=== PATIENT | male | born 1995 | race Caucasian/White ===

== ENCOUNTER 2021-08-20 14:31 | Emergency (ER) | payer SELFPAY ==
--- NOTE | 2021-08-20 16:39 | RAD REPORT ---
EXAM DESCRIPTION: USExtremity Venous Uni Ltd08/20/2021 4:23 pm CLINICAL HISTORY: left leg pain . COMPARISON: None. FINDINGS: Left common femoral, superficial femoral, popliteal and posterior tibial veins are compre ssible and demonstrate augmentation. Doppler demonstrates good flow. 1.3 x 0.7 x 1.1 centimeter nonspecific left inguinal lymph node IMPRESSION: No evidence of deep venous thrombosis involving the left lower extremity.
--- NOTE | 2021-08-20 16:41 | RAD REPORT ---
EXAM DESCRIPTION: Sveta Single View08/20/2021 4:29 pm CLINICAL HISTORY: Leg swelling COMPARISON: none FINDINGS: Mild scoliosis Prominence of the right paratracheal region Lungs appear clear of acute infiltrate. Heart is normal size IMPRESSION: Prominence of the right paratracheal region may represent confluence of normal structur es, lymphadenopathy or an aneurysm. CT chest with IV contrast recommended
[2021-08-20 16:49] LABS: Urine Blood Negative (Negative); Urine Glucose Negative (Negative); Urine Protein Negative (Negative); Urine Specific Gravity 1.015 (1.005-1.030); Urine pH 8.5 (5.0-7.0)
[2021-08-20 17:04] LABS: Absolute Lymphocytes (CBC) 1.5 K/uL (0.7-4.9); Basophils % 0.3 % (0-1.3); Hematocrit 37.9 % (39.6-49.0); MPV 8.6 fL (7.6-11.3); RBC Red Blood Cell Count 4.43 M/uL (4.33-5.43)
[2021-08-20 17:05] LABS: Protime INR 1.12
[2021-08-20] MEDS ORDERED: NA CHLORIDE 0.9% 1,000 ML ONE (17:09)
[2021-08-20 17:10] LABS: ALT/SGPT 55 U/L (12-78); AST/SGOT 25 U/L (15-37); Albumin 3.7 g/dL (3.4-5.0); Alkaline Phosphatase 73 U/L (45-117); BUN Blood Urea Nitrogen 10 mg/dL (7-18); Bicarbonate 27 mmol/L (21-32); Bilirubin Direct 0.1 mg/dL (0-0.2); Bilirubin Total 0.4 mg/dL (0.2-1.0); Glucose Level 100 mg/dL (74-106); Lipase 86 U/L (73-393); Magnesium 1.8 mg/dL (1.8-2.4); NT PRO-BNP 56 pg/mL (<125); Potassium 3.7 mmol/L (3.5-5.1); Protein, Total 7.4 g/dL (6.4-8.2); Sodium Level 140 mmol/L (136-145); Troponin (Emerg Dept Use Only) < 0.02 ng/mL (0.0-0.045)
[2021-08-20 17:38] LABS: Urine Amorphous Sediment 4+ /HPF (NONE SEEN); Urine Bacteria <20 /HPF (NONE SEEN); Urine RBC <5 /HPF (NONE SEEN)
--- NOTE | 2021-08-20 17:49 | RAD REPORT ---
EXAM DESCRIPTION: CT - Angio Aorta For Dissection - 08/20/2021 5:33 pm CLINICAL HISTORY: . Chest and abd pain/abnormal x-ray COMPARISON: None TECHNIQUE: Computed tomography angiography of the chest, abdomen pelvis were obtained. 100 cc Isovue 370 was administered intravenously. Coronal and sagittal reconstruction were performed. MIP 3D reconstruction was performed All CT scans are performed using dose optimization technique as appropriate and may include automated exposure control or mA/KV adjustment according to patient size. FINDINGS: Suboptimal opacification of the aorta. An aortic dissection is not seen. An aortic aneurys m is not displayed. The celiac, SMA and SUPRIYA are patent . A lung consolidation is not present. A pericardial effusion is not seen. A pleural effusion is not no rudy. Moderate anterior and middle mediastinal lymphadenopathy. Lymph nodes measure up to 2.4 centimeters i n short axis. Mild fatty liver The Spleen, pancreas, adrenals and kidneys demonstrate no significant abnormality. No evidence of diverticulitis. Small umbilical hernia Several borderline enlarged periaortic/caval/ left iliac lymph nodes Small gallstone suspected IMPRESSION: Negative for an aortic dissection. Moderate anterior and middle mediastinal lymphadenopathy may indicate lymphoma Several borderline enlarged periaortic/caval/left iliac lymph nodes
[2021-08-20] MEDS ORDERED: CLINDAMYCIN 900MG/D5W 900 MG/50 ML IVPB IV ONE (18:50)
--- NOTE | 2021-08-20 19:33 | EDPHYS ---
Physician Documentation [facility] Name: Arnel Sharpe Age: 26 yrs Sex: Male : 1995 Arrival Date: 08/20/2021 Time: 14:34 Bed DIS3 Private MD: ED Physician Torey Giordano HPI: 08/20 15:35 This 26 yrs old Male presents to ER via Ambulatory with complaints of cp Abdominal Pain, Leg Swelling, Headache. 15:35 The patient presents with abdominal pain left lower flank area. Onset: The cp symptoms/episode began/occurred intermittent for past several weeks. 15:35 Associated signs and symptoms: Pertinent positives: left leg swelling, Pertinent cp negatives: anorexia, chest pain, fever, shortness of breath, testicular pain. Severity of pain: in the emergency department the pain is unchanged despite home interventions. Historical: - Allergies: 15:08 No Known Allergies; vg1 - Home Meds: 15:08 None [Active]; vg1 - PMHx: 15:08 None; vg1 - Immunization history:: Adult Immunizations up to date, Client reports having NOT received the Covid vaccine. - Social history:: Smoking status: Patient/guardian denies using tobacco, the patient reports quitting approximately 4 years ago. ROS: 15:40 MS/extremity: Positive for erythema, pain, swelling, tenderness, of the left lower leg, cp Negative for injury or acute deformity, decreased range of motion, paresthesias. 15:40 Constitutional: Negative for body aches, chills, fever, poor PO intake. cp 15:40 Cardiovascular: Negative for chest pain. 15:40 Respiratory: Negative for cough, shortness of breath, wheezing. 15:40 Abdomen/GI: Positive for abdominal pain, of the left lower flank, Negative for vomiting, diarrhea, constipation, anorexia. 15:40 : Negative for urinary symptoms, testicular pain 15:40 Neuro: Negative for altered mental status, headache, weakness. cp 15:40 All other systems are negative. cp Exam: 15:45 Constitutional: The patient appears in no acute distress, alert, awake, cp non-diaphoretic, non-toxic, well developed, well nourished, obese. 15:45 Head/Face: Normocephalic, atraumatic. cp 15:45 Eyes: Periorbital structures: appear normal, Conjunctiva: normal, no exudate, no injection, Sclera: no appreciated abnormality, Lids and lashes: appear normal, bilaterally. 15:45 ENT: External ear(s): are unremarkable, Nose: is normal, Mouth: Lips: moist, Oral mucosa: moist, Posterior pharynx: Airway: no evidence of obstruction, patent. 15:45 Neck: ROM/movement: is normal, is supple, without pain, no range of motions limitations. 15:45 Chest/axilla: Inspection: normal, Palpation: is normal, no crepitus, no tenderness. 15:45 Cardiovascular: Rate: tachycardic, Rhythm: regular, Edema: ankle edema, that is mild. 15:45 Respiratory: the patient does not display signs of respiratory distress, Respirations: normal, no use of accessory muscles, no retractions, labored breathing, is not present, Breath sounds: are clear throughout, no decreased breath sounds, no stridor, no wheezing. 15:45 Abdomen/GI: Inspection: abdomen appears normal, Bowel sounds: active, all quadrants, Palpation: abdomen is soft and non-tender, in all quadrants, rebound tenderness, is not appreciated. 15:45 Back: pain, is absent, ROM is normal, CVA tenderness, is absent. 15:45 Musculoskeletal/extremity: Extremities: grossly normal except: noted in the left lower leg: erythema, pain, swelling, tenderness, Pulses: noted to be 2+ in the left dorsalis pedis artery, Sensation intact. 15:45 Neuro: Orientation: to person, place \T\ time. Mentation: is normal. 18:03 ECG was reviewed by the Attending Physician. Vital Signs: 15:05 BP 130 / 65; Pulse 122; Resp 18; Temp 99.2; Pulse Ox 100% ; Weight 127.01 kg; Height 5 vg1 ft. 11 in. (180.34 cm); Pain 5/10; 18:00 BP 130 / 60; Pulse 104; Resp 20; Pulse Ox 100% on R/A; kg 19:45 BP 125 / 58; Pulse 102; Resp 20; Pulse Ox 100% on R/A; kg 15:05 Body Mass Index 39.05 (127.01 kg, 180.34 cm) vg1 MDM: 15:24 Patient medically screened. 19:31 Data reviewed: vital signs, nurses notes, lab test result(s), EKG, radiologic studies, cp CT scan, plain films. 19:31 Differential diagnosis: cellulitis, CHF, DVT, pulmonary embolism. Counseling: I had a cp detailed discussion with the patient and/or guardian regarding: the historical points, exam findings, and any diagnostic results supporting the discharge/admit diagnosis, lab results, radiology results, the need for outpatient follow up, for definitive care, oncology, to return to the emergency department if symptoms worsen or persist or if there are any questions or concerns that arise at home. Response to treatment: the patient's symptoms have markedly improved after treatment, and as a result, I will discharge patient. 08/20 15:30 Order name: Basic Metabolic Panel; Complete Time: 17:43 08/20 15:30 Order name: CBC with Diff; Complete Time: 17:43 08/20 17:43 Interpretation: Normal except: WBC 18.10; HGB 12.6; HCT 37.9; ANDREW% 84.9; LYM% 8.0; NEUT cp A 15.4. 08/20 15:30 Order name: LFT's; Complete Time: 17:43 08/20 15:30 Order name: Magnesium; Complete Time: 17:43 08/20 15:30 Order name: NT PRO-BNP; Complete Time: 17:43 08/20 15:30 Order name: PT-INR; Complete Time: 17:43 08/20 15:30 Order name: Troponin (emerg Dept Use Only); Complete Time: 17:43 08/20 15:30 Order name: Urine Microscopic Only; Complete Time: 17:43 08/20 17:43 Interpretation: Normal except: AMORPH 4+. cp 08/20 15:31 Order name: Lipase; Complete Time: 17:43 EDMS 08/20 16:49 Order name: Urine Dipstick-Ancillary; Complete Time: 17:43 EDMS 08/20 17:44 Interpretation: Normal except: UPH 8.5. cp 08/20 17:47 Order name: SARS-COV-2 RT PCR; Complete Time: 17:48 EDMS 08/20 17:49 Order name: Blood Culture Adult (2) cp 08/20 15:30 Order name: XRAY Chest (1 view); Complete Time: 16:43 08/20 15:30 Order name: EKG; Complete Time: 15:31 cp 08/20 15:30 Order name: Cardiac monitoring; Complete Time: 18:28 cp 08/20 15:30 Order name: EKG - Nurse/Tech; Complete Time: 18:28 cp 08/20 15:30 Order name: IV Saline Lock; Complete Time: 16:40 cp 08/20 15:30 Order name: Labs collected and sent; Complete Time: 18:28 cp 08/20 15:30 Order name: US Extremity Venous Unilateral Ltd; Complete Time: 16:43 cp 08/20 16:45 Order name: CT Aorta for Dissection: abdominal pain; Complete Time: 17:56 cp 08/20 17:49 Order name: Procalcitonin 08/20 17:49 Order name: Lactate 08/20 17:50 Order name: Blood Culture EDNE 08/20 17:50 Order name: Procalcitonin; Complete Time: 19:33 EDMS 08/20 17:50 Order name: Lactate; Complete Time: 19:33 EDMS 08/20 15:30 Order name: O2 Per Protocol; Complete Time: 18:28 cp 08/20 15:30 Order name: O2 Sat Monitoring; Complete Time: 18:28 cp 08/20 15:30 Order name: Urine Dipstick-Ancillary (obtain specimen); Complete Time: 18:28 cp EC:03 Rate is 103 beats/min. Rhythm is regular. UT interval is normal. QRS interval is cp normal. QT interval is normal. T waves are Inverted in lead aVR. Interpreted by me. Reviewed by me. Administered Medications: 16:57 Drug: NS 0.9% 1000 ml Route: IV; Rate: 1 bolus; Site: left antecubital; kg 19:30 Follow up: Response: No adverse reaction; IV Status: Completed infusion; IV Intake: kg 1000ml 18:20 Drug: Clindamycin 900 mg Route: IVPB; Infused Over: 30 mins; Site: left antecubital; kg 19:00 Follow up: Response: No adverse reaction; IV Status: Completed infusion; IV Intake: 50mlkg 19:39 Drug: Bactrim (trimethoprim-sulfamethoxazole) (160 mg-800 mg (DS) 2 tabs Route: PO; kg 19:53 Follow up: Response: No adverse reaction kg Disposition: 19:45 Chart complete. cp 08/21 07:56 Co-signature as Attending Physician, Torey Giordano MD I agree with the assessment and rn plan of care. Attestation: The patient's history, exam findings, diagnostics, and a summary of any interventions or procedures was reviewed in detail with Ravi STEVENS. Disposition Summary: 08/20/21 19:32 Discharge Ordered Location: Home cp Problem: new cp Symptoms: have improved cp Condition: Stable cp Diagnosis - Cellulitis of left lower limb cp - Acute lymphadenitis, unspecified - mediastinal(08/20/21 19:33) cp Followup: cp - With: Luiz Gerber MD - When: 1 week - Reason: reevaluation of lymphadenopathy Discharge Instructions: - Discharge Summary Sheet cp - Cellulitis, Adult cp - Lymphadenopathy cp Forms: - Medication Reconciliation Form cp - Thank You Letter cp - Antibiotic Education cp - Prescription Opioid Use cp Prescriptions: - Clindamycin HCl 300 mg Oral Capsule - take 1 capsule by ORAL route every 6 hours for 10 days; 40 capsule; Refills: 0, cp Product Selection Permitted - Ibuprofen 800 mg Oral Tablet - take 1 tablet by ORAL route every 8 hours As needed take with food; 30 tablet; cp Refills: 0, Product Selection Permitted - Bactrim DS 800-160 mg Oral Tablet - take 1 tablet by ORAL route every 12 hours for 10 days; 20 tablet; Refills: 0, cp Product Selection Permitted Signatures: Dispatcher [employer] EDNE Torey Giordano MD MD rn Page, Corey, PA PA cp Carmel Carrizales, RN RN vg1 Tatianna Ames RN RN kg Corrections: (The following items were deleted from the chart) 08/20 16:46 15:31 LIPASE+C.LAB.BRZ ordered. EDNE EDNE 19:33 19:32 Acute lymphadenitis, unspecified cp cp
--- NOTE | 2021-08-20 19:33 | ER ---
Nurse's Notes [facility] Name: Arnel Sharpe Age: 26 yrs Sex: Male : 1995 Arrival Date: 08/20/2021 Time: 14:34 Bed DIS3 Private MD: Diagnosis: Cellulitis of left lower limb;Acute lymphadenitis, unspecified-mediastinal Presentation: 08/20 15:05 Chief complaint: Patient states: ABD pain, Left leg swelling and headache for about vg1 five weeks. Denies NVD or dizziness. Coronavirus screen: Vaccine status: Patient reports being unvaccinated. Ebola Screen: Patient negative for fever greater than or equal to 101.5 degrees Fahrenheit, and additional compatible Ebola Virus Disease symptoms. Initial Sepsis Screen: Does the patient meet any 2 criteria? No. Patient's initial sepsis screen is negative. Does the patient have a suspected source of infection? No. Patient's initial sepsis screen is negative. Risk Assessment: Do you want to hurt yourself or someone else? Patient reports no desire to harm self or others. Onset of symptoms was July 20, 2021. 15:05 Method Of Arrival: Ambulatory vg1 15:05 Acuity: EDER 3 vg1 Triage Assessment: 15:08 General: Appears in no apparent distress. comfortable, Behavior is calm, cooperative. vg1 Pain: Complains of pain in abdomen and left leg. GI: Abdomen is round non-distended. Historical: - Allergies: 15:08 No Known Allergies; vg1 - Home Meds: 15:08 None [Active]; vg1 - PMHx: 15:08 None; vg1 - Immunization history:: Adult Immunizations up to date, Client reports having NOT received the Covid vaccine. - Social history:: Smoking status: Patient/guardian denies using tobacco, the patient reports quitting approximately 4 years ago. Screenin:13 Abuse screen: Denies threats or abuse. Denies injuries from another. Nutritional kg screening: No deficits noted. Tuberculosis screening: No symptoms or risk factors identified. Fall Risk None identified. Assessment: 15:12 General: Appears in no apparent distress. Behavior is calm, cooperative, appropriate kg for age, quiet. Pain: Complains of pain in Head, LLQ abdomen, Left flank, Left leg Pain currently is 4 out of 10 on a pain scale. at worst was 4 out of 10 on a pain scale. level that patient reports is acceptable is 2 out of 10 on a pain scale. Neuro: No deficits noted. Cardiovascular: No deficits noted. Respiratory: No deficits noted. GI: Reports lower abdominal pain, nausea. : No deficits noted. EENT: No deficits noted. Derm: No deficits noted. Musculoskeletal: Reports pain in left leg since Chronic. Pain is 3 out of 10 on a pain scale. 18:22 GI: Bowel sounds present X 4 quads. Abd is soft X 4 quads Abdomen is tender to kg palpation in left lower quadrant. Vital Signs: 15:05 BP 130 / 65; Pulse 122; Resp 18; Temp 99.2; Pulse Ox 100% ; Weight 127.01 kg; Height 5 vg1 ft. 11 in. (180.34 cm); Pain 5/10; 18:00 BP 130 / 60; Pulse 104; Resp 20; Pulse Ox 100% on R/A; kg 19:45 BP 125 / 58; Pulse 102; Resp 20; Pulse Ox 100% on R/A; kg 15:05 Body Mass Index 39.05 (127.01 kg, 180.34 cm) vg1 ED Course: 14:34 Patient arrived in ED. rg4 15:08 Triage completed. vg1 15:08 Arm band placed on. vg1 15:13 Patient has correct armband on for positive identification. kg 15:13 No provider procedures requiring assistance completed. kg 15:15 Tatianna Ames, RN is Primary Nurse. kg 15:20 Ravi Harrington PA is PHCP. cp 15:20 Torey Giordano MD is Attending Physician. cp 16:23 US Extremity Venous Unilateral Ltd In Process Unspecified. EDMS 16:28 XRAY Chest (1 view) In Process Unspecified. EDMS 16:40 Lipase Sent. kg 17:33 CT Aorta for Dissection: abdominal pain In Process Unspecified. EDMS 18:28 Lactate Sent. kg 18:28 Procalcitonin Sent. kg 18:28 Blood Culture Sent. kg 18:28 Lactate Sent. kg 18:28 Procalcitonin Sent. kg 18:28 Blood Culture Adult (2) Sent. kg 19:31 Luiz Gerber MD is Referral Physician. cp 19:52 IV discontinued, intact, bleeding controlled, No redness/swelling at site. Pressure kg dressing applied. Administered Medications: 16:57 Drug: NS 0.9% 1000 ml Route: IV; Rate: 1 bolus; Site: left antecubital; kg 19:30 Follow up: Response: No adverse reaction; IV Status: Completed infusion; IV Intake: kg 1000ml 18:20 Drug: Clindamycin 900 mg Route: IVPB; Infused Over: 30 mins; Site: left antecubital; kg 19:00 Follow up: Response: No adverse reaction; IV Status: Completed infusion; IV Intake: 50mlkg 19:39 Drug: Bactrim (trimethoprim-sulfamethoxazole) (160 mg-800 mg (DS) 2 tabs Route: PO; kg 19:53 Follow up: Response: No adverse reaction kg Intake: 19:00 IV: 50ml; Total: 50ml. kg 19:30 IV: 1000ml; Total: 1050ml. kg Outcome: 19:32 Discharge ordered by MD. cp 19:51 Discharged to home ambulatory, with family. kg 19:51 Condition: good 19:51 Discharge instructions given to patient, family, Instructed on discharge instructions, follow up and referral plans. Demonstrated understanding of instructions, follow-up care, medications, Prescriptions given X 3. 19:54 Patient left the ED. kg Signatures: Dispatcher [employer] EDMS Ravi Harrington PA PA cp Garcia, Rubi rg4 Carmel Carrizales, RN RN vg1 Tatianna Ames, ISREAL RN kg Corrections: (The following items were deleted from the chart) 16:46 16:40 LIPASE+C.LAB.BRZ drawn and sent. kg EDMS
[2021-08-20 19:59] VITALS: TEMP 99.2; O2SAT 100
[2021-08-20 20:01] VITALS: BP 125/58
[2021-08-20] MEDS ORDERED: SMZ./TMP. 800/160 MG TABLET ONE (20:03)
--- NOTE | 2021-08-21 10:41 | EKG ---
Test Date: 2021-08-20 Test Time: 17:56:41 Mobility Architect: LAYO MEASUREMENT RESULTS: Intervals: Rate: 103 AL: 158 QRSD: 92 QT: 324 QTc: 424 Sheldon: P: 48 AL: 158 QRS: -31 T: 47 INTERPRETIVE STATEMENTS: Sinus tachycardia Left axis deviation Abnormal ECG No previous ECG available for comparison Electronically Signed On 08-21-21 10:39:51 CDT by Girish Phillip
== END 2021-08-20 19:54 | disposition home or self-care (01) ==
LOC: ER 14:31
DX: L03.116 Cellulitis of left lower limb (principal); L04.8 Acute lymphadenitis of other sites; Z20.822 Contact with and (suspected) exposure to COVID-19
CPT/HCPCS: 36415; 71045; 71275; 74175; 80048; 80076; 81003; 81015; 83605; 83690; 83735; 83880; 84145; 84484; 85025; 85610; 87040; 87205; 93005; 93971; 96361; 96365; 99284; J7030; Q9967; U0003

== ENCOUNTER → 2022-07-13 | Day surgery (SDC) | payer OTHER, SELFPAY ==
--- NOTE | 2022-07-13 11:58 | RAD REPORT ---
EXAM DESCRIPTION: US - Guided FNA Non Breast - 07/13/2022 11:38 am CLINICAL HISTORY: R59.1 COMPARISON: No comparisons FINDINGS: Preoperative diagnosis: Right supraclavicular mass. Post operative diagnosis: Same. Conscious Sedation: None Fluoroscopy time: None Contrast used: None Estimated blood loss: Minimal Specimens:4 x 18 gauge specimens obtained Imaging guidance: Ultrasound Complications: None IMPRESSION: Technically successful ultrasound-guided core biopsy of a suspicious right supraclavicul ar mass.
== END ==
LOC: FNA 08:00
PROVIDERS: ATTEND Otolaryngology
PROC: 07D13ZX Extraction of Right Neck Lymphatic, Percutaneous Approach, Diagnostic (ICD-10-PCS; principal; 2022-07-13)
DX: R59.1 Generalized enlarged lymph nodes (principal)
CPT/HCPCS: 88305

== ENCOUNTER 2024-06-03 16:56 | Inpatient (IN) | payer OTHER, SELFPAY ==
--- OUTSIDE RECORDS SUMMARY | 2024-06-03 17:00 | XMS REPORT | Continuity of Care Document ---
Author Name Unknown Address [address] [place] [address] [facility] Address [address] [place] [address] Care Team Providers Care Young Adult Librarian Name Role Phone Tahir Green MD, Surendra Lr Primary Care Physic an MASOUD FANG Attending Clinician Unavailable MITESH RANDALL Attending Clinician Unav Asmita Arenas DPM Attending Clinician [phone] ASMITA FELDER Attending Clinician TARIQ Mohr Attending Clinician Unavail able Tariq Mcmanus DPM Attending Clinician [phone] Masoud Fang MD Attending Clinician [phone] Doctor Unassigned, Rotonda Attending Clinician U Esperanza Gan Attending Clinician ESPERANZA PELLETIER Attending Clinician Unavaila ble 2, [facility] Lab Attending Clinician Unavailable LAB90 Attending Clinician Unavailable SAIMA PEREZ Attending Clinician Unavailable DANTE IQBAL Attending Clinician Unavailable MASOUD FANG Admitting Clinician Unavailable ESPERANZA PELLETIER Admitting Clinician Unavaila ble Payers Payer Name Policy Type Policy Number Effective Date Expirati on Date Source [facility] [id number] 2024 00:00:00 [facility] [place] [facility]/PP[facility] 2 [id number] 2022 00:00:00 Problems Condition Name Condition Details Condition Category Status Onset Date Resolution Date Last Treatment Date Treating Clinician Comments Source Scrotal lesion Scrotal lesion Disease Active 01-03 00:00: 00 [facility] BMI 39.0-39.9, adult BMI 39.0-39.9, adult Disease Active 2021-11 00:00: 00 Tabitha Yo - Jerroda l 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 2021-11 00:00: 00 Tabitha Yo - Externa l Allergies, Adverse Reactions, Alerts Allergy Name Allergy Type Status Severity Reaction(s) Onset Date Inactive Date Treating Clinician Comments Source NO KNOWN ALLERGIE S SYSTEMIC Active MHEOUT NO KNOWN ALLERGIE S SYSTEMIC Active MHEOUT ALLERGIE S NOT ON FILE SYSTEMIC Active MHEOUT NO KNOWN ALLERGIE S SYSTEMIC Active MHEOUT NO KNOWN ALLERGIE S SYSTEMIC Active MHEOUT NO KNOWN ALLERGIE S SYSTEMIC Active MHEOUT NO KNOWN ALLERGIE S SYSTEMIC Active MHEOUT NO KNOWN ALLERGIE S Drug Class Active [facility] Social History Social Habit Start Date Stop Date Quantity Comments Source Gender identity 2024-02-11 10:07:31 [facility]finding[facility] History of tobacco use [facility] Sexual orientation [facility] History of Social function 2024-03-23 00:00:00 2024-03-23 00:00:00 [facility] Alcohol intake 2024-01-03 00:00:00 2024-01-03 00:00:00 Current drinker of alcohol (finding) [facility] Tobacco use and exposure 2023-09-28 00:00:00 2023-09-28 00:00:00 Smokeless tobacco non-user [facility] Cigarettes smoked current (pack per day) - Reported 2022-11-04 00:00:00 2022-11-04 00:00:00 Tabitha Yo - External Sex Assigned At 1995 00:00:00 1995 00:00:00 [facility] Smoking Status Start Date Stop Date Source Ex-smoker [facility] Kam n Epic Never smoked tobacco [facility] Medications Ordered Medication Name Filled Medication Name Start Date Stop Date Current Medication? Ordering Clinician Indication Dosage Frequency Signature (SIG) Comments Components Source cephalexin (Keflex) 500 MG capsule cephalexin (Keflex) 500 MG capsule 10 00:00: 00 05-14 23:59 :00 No 500mg Q.5D Take 1 capsule by mouth in the morning and 1 capsule in the evening. Do all this for 14 days. Matteo Mahoney Dexamethaso ne (DECADRON) 4 MG oral tablet 2021-11 00:00: 00 Yes Tabitha haile Ondansetron (ZOFRAN) 4 MG oral TABLET DISPERSIBLE 2021-11 00:00: 00 Yes DISSOLVE 1 TABLET ON THE TONGUE EVERY 4 TO 6 HOURS NEEDED Tabitha haile TRIMETHOPRI M-SULFAMETH OXAZOLE 800-160 MG oral Tablet 2021-11 00:00: 00 Yes Tabitha haile Valacyclovi r HCl 500 MG oral Tablet 2021-11 00:00: 00 Yes 500mg Take 500 mg by mouth daily Tabitha haile Allopurinol 300 MG oral Tablet 2021-11 00:00: 00 Yes 300mg Take 300 mg by mouth daily Tabitha haile Vital Signs Vital Name Observation Time Observation Value Comments S ource Systolic blood pressure 2024-01-03 17:32:00 137 mm[Hg] [facility] Diastolic blood pressure 2024-01-03 17:32:00 90 mm[Hg] [facility] Heart rate 2024-01-03 17:32:00 91 /min [facility] Body temperature 2024-01-03 17:32:00 36.72 Fabiola [facility] Respiratory rate 2024-01-03 17:32:00 20 /min [facility] Body height 2024-01-03 17:32:00 180.3 cm [facility] Body weight 2024-01-03 17:32:00 141.976 kg [facility] BMI 2024-01-03 17:32:00 43.65 kg/m2 [facility] Oxygen saturation in Arterial blood by Pulse oximetry 2024-01-03 17:32:00 96 /min [facility] Systolic blood pressure 2023-11-04 17:19:00 131 mm[Hg] [facility] Diastolic blood pressure 2023-11-04 17:19:00 80 mm[Hg] [facility] Heart rate 2023-11-04 17:19:00 97 /min [facility] Body temperature 2023-11-04 17:19:00 36.67 Fabiola [facility] Respiratory rate 2023-11-04 17:19:00 18 /min [facility] Body height 2023-11-04 17:19:00 180.3 cm [facility] Body weight 2023-11-04 17:19:00 134.718 kg [facility] BMI 2023-11-04 17:19:00 41.42 kg/m2 [facility] Oxygen saturation in Arterial blood by Pulse oximetry 2023-11-04 17:19:00 98 /min [facility] Systolic blood pressure 2023-09-28 16:23:00 127 mm[Hg] [facility] Diastolic blood pressure 2023-09-28 16:23:00 75 mm[Hg] [facility] Heart rate 2023-09-28 16:23:00 79 /min [facility] Respiratory rate 2023-09-28 16:23:00 18 /min [facility] Body height 2023-09-28 16:23:00 180.3 cm [facility] Body weight 2023-09-28 16:23:00 134.718 kg [facility] BMI 2023-09-28 16:23:00 41.42 kg/m2 [facility] Systolic blood pressure 2022-11-04 14:27:00 146 mm[Hg] Tabitha Lane ld - External Diastolic blood pressure 2022-11-04 14:27:00 62 mm[Hg] Tabitha rosas - External Heart rate 2022-11-04 14:27:00 121 /min Kathrin Yo - External Body temperature 2022-11-04 14:27:00 36.83 Fabiola Tabitha Yo - External Respiratory rate 2022-11-04 14:27:00 16 /min Tabitha Yo - External Body height 2022-11-04 14:27:00 180.3 cm Belen Yo - External Body weight 2022-11-04 14:27:00 127.461 kg Belen pearson Seybold - External BMI 2022-11-04 14:27:00 39.19 kg/m2 Belen ey Seybold - External Procedures Procedure Date / Time Performed Performing Clinicia n Source POCT URINALYSIS AUTO 2024-01-03 17:42:00 Keith Fang [facility] DISCLOSURE AND CONSENT, MEDICAL AND SURGICAL PROCEDURES 2024-01-03 06:01:00 Doctor Unassigned, Rotonda [facility] POCT URINALYSIS AUTO 2023-11-04 17:38:00 Nitin Pelletier [facility] US SCROTUM AND CONTENTS 2023-10-19 17:36:29 Esperanza Pelletier [facility] FLASH,POST-VOID RES,US,NON-IMAGING 2023-09-28 00:00:00 Esperanza Pelletier [facility] POCT URINALYSIS AUTO 2023-09-28 00:00:00 Nitin Pelletier [facility] Encounters Start Date/Time End Date/Time Encounter Type Admission Type Attending [facility] Care Facility Care Department Encounter ID Source 2024-01-04 07:34:01 Outpatient MASOUD LEON [facility] SUU [id number] [facility] 2023-01-20 10:00:00 Inpatient MITESH GOFF [facility] [id number] [facility] 2024-05-17 10:10:00 2024-05-17 11:19:29 Consult Asmita Felder [facility] 1.2.840.114 350.1.13.70 8.2.7.2.686 [id number] Matteo Franklin [facility] 2024-05-17 10:06:02 2024-05-17 11:19:29 Outpatient Elective ASMITA FELDER RossOUT EOUT [id number] [facility] 2024-05-10 10:37:27 2024-05-10 12:08:49 Outpatient Elective ASMITA FELDER EOUT EOUT [id number] [facility] 2024-04-30 09:51:44 2024-04-30 11:03:07 Outpatient Elective NITIN MCMANUSIAN AMANDA EOUT [id number] [facility] 2024-04-30 09:50:00 2024-04-30 11:03:07 Office Visit Tariq Mcmanus [facility] 1..840.114 350.1.13.70 8.2.7.2.686 [id number] Matteo Franklin [facility] 2024-02-13 14:14:46 2024-02-13 14:14:46 Outpatient [facility] [id number] Alberto Hernandez 2024-01-04 00:00:00 2024-01-04 00:00:00 Telephone Masoud Fang [facility] 1..840.114 350.1.13.10 4.2.7.2.686 [id number] [facility] 2024-01-03 11:30:00 2024-01-03 11:53:52 Outpatient R MASOUD FANG [facility] [id number] [facility] 2024-01-03 11:30:00 2024-01-03 11:53:52 Office Visit Masoud Fang [facility] 1..840.114 350.1.13.10 4.2.7.2.686 [id number] [facility] 2024-01-03 00:00:00 2024-01-03 00:00:00 Orders Only Doctor Unassigned, Rotonda [facility] 1.2.840.114 350.1.13.10 4.2.7.2.686 [id number] [facility] 2024-01-03 00:00:00 2024-01-03 00:00:00 Telephone Masoud Fang [facility] 1.2.840.114 350.1.13.10 4.2.7.2.686 [id number] [facility] 2023-11-04 11:30:00 2023-11-04 15:07:54 Office Visit Nereida Pelletiertney [facility] 1.2.840.114 350.1.13.10 4.2.7.2.686 [id number] [facility] 2023-11-04 11:30:00 2023-11-04 15:07:54 Outpatient R ESPERANZA PELLETIER [facility] [id number] [facility] 2023-11-04 11:30:00 2023-11-04 11:45:00 Audiovisual Technician Visit 2, Adc Lab Nereida Pelletiertney [facility] 1.2.840.114 350.1.13.10 4.2.7.2.686 [id number] [facility] 2023-10-26 00:00:00 2023-10-26 00:00:00 Telephone Nereida Pelletiertney [facility] 1.2.840.114 350.1.13.10 4.2.7.2.686 [id number] [facility] 2023-10-19 10:47:50 2023-10-19 23:59:00 Outpatient R ESPERANZA PELLETIER [facility] [id number] [facility] 2023-10-19 10:47:50 2023-10-19 23:59:00 Hospital Encounter Esperanza Pelletier [facility] 1.2.840.114 350.1.13.10 4.2.7.2.686 [id number] [facility] 2023-10-09 00:00:00 2023-10-09 00:00:00 [facility] 1.2.840.114 350.1.13.10 4.2.7.2.686 [id number] [facility] 2023-09-28 09:45:00 2023-09-28 11:00:26 [facility] [id number] 2023-09-28 09:45:00 2023-09-28 11:00:26 [facility] 1.2.840.114 350.1.13.10 4.2.7.2.686 [id number] [facility] 2023-01-21 13:19:00 2023-01-21 13:19:00 Outpatient MEHDI MITESH RANDALL [facility] [id number] [facility] 2022-11-04 08:55:00 2022-11-04 08:55:00 Outpatient LAB90 TABITHA LUNDBERG [id number] Tabitha Yo 2022-11-04 08:00:00 2022-11-04 08:00:00 Outpatient SAIMA PEREZ [id number] Tabitha Yo 2022-10-11 10:14:00 2022-10-11 10:14:00 Outpatient MEHDI MITESH RANDALL [facility] [id number] [facility] 2022-06-30 09:00:00 2022-06-30 09:00:00 Outpatient DANTE IQBAL [id number] Tabitha Yo Results Test Description Test Time Test Comments Results Result Co mments Source [facility] Urinalysis, [id number] 17:42:00 * Test Item Value Reference Range Interpretation Comme nts POCT U SP GRAV (test code = 3255) 1.010 mg/dl 1.005-1.025 POCT PH U (test code = 3254) 7.0 mg/dl 5-8 POCT U LEUK EST (test code = 3263) negative Negative - Negative POCT U NIT (test code = 3262) negative Negative - Negati ve POCT U PROT (test code = 3259) negative Negative - Negative POCT U GLU (test code = 3256) negative Negative - Negati ve POCT U KETONE (test code = 3258) negative Negative - Negative POCT U UROBILI (test code = 3260) 0.2 mg/dl 0.2-1 POCT U BILI (test code = 3261) negative Negative - Negative POCT U BLD (test code = 3257) clear Negative - Negati ve POCT U COLOR (test code = 3266) clear POCT U APPEAR (test code = 3267) [facility] Urinalysis, [id number] 17:42:00 * Test Item Value Reference Range Interpretation Comme nts POCT U SP GRAV (test code = 3255) 1.010 mg/dl 1.005-1.025 POCT PH U (test code = 3254) 7.0 mg/dl 5-8 POCT U LEUK EST (test code = 3263) negative Negative - Negative POCT U NIT (test code = 3262) negative Negative - Negati ve POCT U PROT (test code = 3259) negative Negative - Negative POCT U GLU (test code = 3256) negative Negative - Negati ve POCT U KETONE (test code = 3258) negative Negative - Negative POCT U UROBILI (test code = 3260) 0.2 mg/dl 0.2-1 POCT U BILI (test code = 3261) negative Negative - Negative POCT U BLD (test code = 3257) clear Negative - Negati ve POCT U COLOR (test code = 3266) clear PO[facility] (test code = 3267) [facility] [id number] 17:39:00 * Test Item Value Reference Range Interpretation Comme nts POCT U SP GRAV (test code = 3255) 1.005-1.025 POCT PH U (test code = 3254) 5.5 mg/dl 5-8 POCT U LEUK EST (test code = 3263) Negative Negative - Negative POCT U NIT (test code = 3262) Negative Negative - Negati ve POCT U PROT (test code = 3259) Negative Negative - Negat rizwana POCT U GLU (test code = 3256) Negative Negative - Negati ve POCT U KETONE (test code = 3258) Negative Negative - Negative POCT U UROBILI (test code = 3260) 0.2 mg/dl 0.2-1 POCT U BILI (test code = 3261) Negative Negative - Negat rizwana POCT U BLD (test code = 3257) Negative Negative - Negati ve POCT U COLOR (test code = 3266) Dark POCT U APPEAR (test code = 3267) [facility] Urinalysis, [id number] 17:39:00 * Test Item Value Reference Range Interpretation Comme nts POCT U SP GRAV (test code = 3255) 1.005-1.025 POCT PH U (test code = 3254) 5.5 mg/dl 5-8 POCT U LEUK EST (test code = 3263) Negative Negative - Negative POCT U NIT (test code = 3262) Negative Negative - Negati ve POCT U PROT (test code = 3259) Negative Negative - Negat rizwana POCT U GLU (test code = 3256) Negative Negative - Negati ve POCT U KETONE (test code = 3258) Negative Negative - Negative POCT U UROBILI (test code = 3260) 0.2 mg/dl 0.2-1 POCT U BILI (test code = 3261) Negative Negative - Negat rizwana POCT U BLD (test code = 3257) Negative Negative - Negati ve POCT U COLOR (test code = 3266) Dark POCT U APPEAR (test code = 3267) [facility], [id number] 17:39:00 * Test Item Value Reference Range Interpretation Comme nts POCT U SP GRAV (test code = 3255) 1.005-1.025 POCT PH U (test code = 3254) 5.5 mg/dl 5-8 POCT U LEUK EST (test code = 3263) Negative Negative - Negative POCT U NIT (test code = 3262) Negative Negative - Negati ve POCT U PROT (test code = 3259) Negative Negative - Negat rizwana POCT U GLU (test code = 3256) Negative Negative - Negati ve POCT U KETONE (test code = 3258) Negative Negative - Negative POCT U UROBILI (test code = 3260) 0.2 mg/dl 0.2-1 POCT U BILI (test code = 3261) Negative Negative - Negat rizwana POCT U BLD (test code = 3257) Negative Negative - Negati ve POCT U COLOR (test code = 3266) Dark POCT U APPEAR (test code = 3267) Yellow [facility] URINALYSIS, [id number] 16:43:00 * Test Item Value Reference Range Interpretation Comme nts POCT U SP GRAV (test code = 3255) 1.025 mg/dl 1.005-1.025 POCT PH U (test code = 3254) 7.0 mg/dl 5-8 POCT U LEUK EST (test code = 3263) neg Negative - Negative POCT U NIT (test code = 3262) neg Negative - Negati ve POCT U PROT (test code = 3259) trace Negative - Negative POCT U GLU (test code = 3256) neg Negative - Negati ve POCT U KETONE (test code = 3258) neg Negative - Negative POCT U UROBILI (test code = 3260) 0.2 mg/dl 0.2-1 POCT U BILI (test code = 3261) neg Negative - Negative POCT U BLD (test code = 3257) neg Negative - Negati ve POCT U COLOR (test code = 3266) yellow POCT U APPEAR (test code = 3267) clear [facility] URINALYSIS, [id number] 16:43:00 * Test Item Value Reference Range Interpretation Comme nts POCT U SP GRAV (test code = 3255) 1.025 mg/dl 1.005-1.025 POCT PH U (test code = 3254) 7.0 mg/dl 5-8 POCT U LEUK EST (test code = 3263) neg Negative - Negative POCT U NIT (test code = 3262) neg Negative - Negati ve POCT U PROT (test code = 3259) trace Negative - Negative POCT U GLU (test code = 3256) neg Negative - Negati ve POCT U KETONE (test code = 3258) neg Negative - Negative POCT U UROBILI (test code = 3260) 0.2 mg/dl 0.2-1 POCT U BILI (test code = 3261) neg Negative - Negative POCT U BLD (test code = 3257) neg Negative - Negati ve POCT U COLOR (test code = 3266) yellow POCT U APPEAR (test code = 3267) clear [facility],POST-VOID RES,US,[id number] 00:00:00* Test Item Value Reference Range Interpretation Comme nts PVR (URINE VOLUME) (test code = 5193) 15 ml 0-100 [facility],US,[id number] 00:00:00* Test Item Value Reference Range Interpretation Comme nts PVR (URINE VOLUME) (test code = 5193) 15 ml 0-100 [facility] Notes Date/Time Note Provider Source 2024-05-22 10:47:47 [id number] [id number] [id number]:47:47+ + + +--------- +| Health Maintenance | Due Date | Last Done | Comments |+ + +========= ==+ + | Pneumococcal Vaccine: Pediatrics (0 to 5 Years) and At-Risk Patients (6 to 64 | 2002 | | || Years) (1 of 2 - PCV) | | | |+ + +--------- --+ + | Varicella Vaccines (1 of 2 - 13+ 2-dose series) | 2009 | | |+ + +--------- --+ + | DTaP/Tdap/Td Vaccines (1 - Tdap) | 2015 | | |+ + +--------- --+ + | Hepatitis B Vaccines ( 3 - 19+ 3-dose series) | 2015 | | |+ + +--------- --+ + | Influenza Vaccine (#1) | 07/22/2024 | | |+ + +--------- --+ + | HIB Vaccines | Aged Out | | No longer eligible based on patient's age to complete this topic |+ + +--------- --+ + | HPV Vaccines | Aged Out | | No longer eligible based on patient's age to complete this topic |+ + +--------- --+ + | Hepatitis A Vaccines | Aged Out | | No longer eligible based on patient's age to complete this topic |+ + +--------- --+ + | IPV Vaccines | Aged Out | | No longer eligible based on patient's age to complete this topic |+ + +--------- --+ + | Meningococcal Vaccine | Aged Out | | No longer eligible based on patient's age to complete this topic |+ + +--------- --+ + | Rotavirus Vaccines | Aged Out | | No longer eligible based on patient's age to complete this topic |+ + +--------- --+ + [id number] of TreatmentLNPlan of [id number] for patient betlRhbflejOrexcsrfbFHWWe30 Section NarrativeNARRATIVEFormatted C-CDA narrative textMHIEEPICMemorial Xsbdrbu195 Ngastephani C[id number] [id number]:47:47 [facility] 2024-05-22 10:47:47 [id number]+Holli+SEQq8uHf9mi VhgmFK7MhTM7lyEJlXU4gbYnXtID+UtpDKk zpJQE2097-66-87T40:47:47+ +| Diagnosis |+ +| Abnormal foot finding - Primary |+ +[id number] [id number] -[id number] for patient vxfdQrluzygHuowhxhvqUFTVm94 Section NarrativeNARRATIVEFormatted C-CDA narrative textIEEPICMemorial Nlsfidr453 [facility] [id number] LHTOGESBJUY8669-05-28L84:47:47 [facility] 2024-05-22 10:47:47 [id number]+mwTTwD 1cu/jT18BnOJvSBQIfMnrtKnOcJBZmLl1Cr RIKJT3452-64-63E21:47:47 * Tariq Mcmanus, ROLANDO - 04/30/2024 9:50 AM CDT Chief Complaints: EFT MEDIAL HALLUX nail ingrown. History of present illness: Patient states INGROWN NAIL, LEFT MEDIAL HALLUX, starting approximately NOVEMBER 2023 Patient denies systemic signs of infection. Patient states pain is currently rated 4/10 on palpation, ingrown nail border Objective: Examination of the lower extremity: Vascular (+) edema, Localized to the ingrown nail border (+) erythema, Localized to the ingrown nail border (-) ecchymosis (+) 2/4 pedal pulses, bilateral (+) Capillary Refill time: within normal limits (-) varicosities (+) pedal hair growth. Neurological (+) sensation with 5.07 [place] Artur monofilament examination to the most distal lower extremity (-) clonus present (-) tinel's sign. Dermatological (+) signs of soft tissue infection localized to the ingrown nail border, (+) paronychia (-) open wounds, (-) macerations, (-) ischemic tissue, (-) drainage/abscess (-) other primary or secondary lesions (+) normal temperature when compared to contralateral limb (+) normal color, tugor, and elasticity. Musculoskeletal (+) pain to ingrown nail border, (-) other pain on palpation or with range of motion throughout the remainder of the lower extremity, 5/5 muscle strength to extrinsic pedal muscle groups (-) evidence of compartment syndrome, (-) evidence of deep vein thrombosis. Assessment: Ingrown nail with paronychia. Treatment: -Extensive visit and patient agrees to treatment plan after thoroughly discussing risks, complciations, benefits, alternatives related to this ingrown nail. -Will start oral antibiotics prophylactically in attempts to treat the ingrown nail with conservative treatments before considering surgical intervention - Antibiotics - PRESCRIBED 6/10 KEFLEX - Pain - controlled with over the counter Tylenol - Wound - Cleanse and bandage with triple antibiotic ointment, daily. Soak daily in Epsom salt, written and verbal instruction dispensed. - Culture - Due to lack of specimen, no culture could be obtained. - Imaging - Not indicated - Weight bearing - as tolerated in protected shoes. - Return in 1 week for INGROWN NAIL PROCEDURE Patient advised to report to my clinic or the emergency room immediately with any questions or concerns. Patient Instructions: Discussion: A detailed discussion was provided to the patient with specific reference to etiology, pathology, alternate treatment options, and prognosis. All risks and complications (including side effects) with each treatment/medication alternative were outlined in detail including but not limited to: Pain, swelling, numbness, loss of function, loss of limb, loss of life, bleeding, blood clot, embolism, hematoma, scarring, worsening of condition, failure to relieve condition, surgery, over/under correction from procedure, additional/revisional surgery, reflex sympathetic dystrophy, complex regional pain syndrome, reoccurrence of deformity, joint, stiffness, flail toe, bone and/or soft tissue infection, blood clots, pulmonary embolism, possible , delayed or non-healing. X-rays, graphs and drawings were all used to assist with patient comprehension when appropriate. All patients questions were answered and stated they fully understood. No guarantee as to results or outcome of treatment was made. I have discussed with the patient or legally responsible person prior to obtaining consent: the risks, potential benefits and drawbacks, significant alternatives, potential for problems related to recuperation, likelihood of success, and possible results of non-treatment, and the patient or the legally responsible person has agreed to proceed [id number] of Present IllnessLNProgress [id number] L8JVA4624KFMjlmchhfr for patient oeihVarjajsYunxnnmigXLBEa69 Section NarrativeNARRATIVEFormatted C-CDA narrative textMHIEEPICMemorial Lfumgcn760 [facility] [id number] HYOBDLPGAMO6724-90-59V78:47:47 [facility] Rigoberto 2024-05-22 10:47:47 [id number] jBb+3Jwrli17Lyb7SdsDV3XjHRAXrroQB6h AvNTC1034-28-35E58:47:47+ + + +--------- +| Health Maintenance | Due Date | Last Done | Comments |+ + +========= ==+ + | Pneumococcal Vaccine: Pediatrics (0 to 5 Years) and At-Risk Patients (6 to 64 | 2002 | | || Years) (1 of 2 - PCV) | | | |+ + +--------- --+ + | Varicella Vaccines (1 of 2 - 13+ 2-dose series) | 2009 | | |+ + +--------- --+ + | DTaP/Tdap/Td Vaccines (1 - Tdap) | 2015 | | |+ + +--------- --+ + | Hepatitis B Vaccines ( - 19+ 3-dose series) | 2015 | | |+ + +--------- --+ + | Influenza Vaccine (#1) | 07/22/2024 | | |+ + +--------- --+ + | HIB Vaccines | Aged Out | | No longer eligible based on patient's age to complete this topic |+ + +--------- --+ + | HPV Vaccines | Aged Out | | No longer eligible based on patient's age to complete this topic |+ + +--------- --+ + | Hepatitis A Vaccines | Aged Out | | No longer eligible based on patient's age to complete this topic |+ + +--------- --+ + | IPV Vaccines | Aged Out | | No longer eligible based on patient's age to complete this topic |+ + +--------- --+ + | Meningococcal Vaccine | Aged Out | | No longer eligible based on patient's age to complete this topic |+ + +--------- --+ + | Rotavirus Vaccines | Aged Out | | No longer eligible based on patient's age to complete this topic |+ + +--------- --+ + 19785-1Twrn of TreatmentLNPlan of [id number] .[id number]|2.16.840.1.11 3883.10.20.22.2.10AVAvailable for patient pmrfFkycfwsCrwfmjzvdZOEDm24 Section NarrativeNARRATIVEFormatted C-CDA narrative textIEEPICMemorial Jwzzjza087 Melonie ChongR[id number] WOKEMJPHDMK0644-95-36H14:47:47 [facility] 2024-05-22 10:47:47 [id number]+Holli+LSOs7eCg3nt VhqdNB9GtNG6mnQCtFS0saRdBjHC+UtpDKk xhVHU0498-29-64S39:47:47+ +| Diagnosis |+ +| Abnormal foot finding - Primary |+ +21901-9UyxubnababjBKJttap JmbysprteIAY00290583-1725-9H4G-8799 -794G8YNZ7189HGGlssyrgyv for patient umotLihvzooUozqmpwnbHHRBa03 Section NarrativeNARRATIVEFormatted C-CDA narrative textIEEPICMesdrial Ehyfopu790 [facility] [id number] UIYITBIUOVX9543-90-01T56:47:47 [facility] 2024-05-22 10:47:47 [id number]+mwTTwD 1cu/hA84WrGFkUKNNbFskgMsBlPPYnCf0Gz MGTPC9998-75-87Q08:47:47 * Tariq Mcmanus, ROLANDO - 04/30/2024 9:50 AM CDT Chief Complaints: EFT MEDIAL HALLUX nail ingrown. History of present illness: Patient states INGROWN NAIL, LEFT MEDIAL HALLUX, starting approximately NOVEMBER 2023 Patient denies systemic signs of infection. Patient states pain is currently rated 4/10 on palpation, ingrown nail border Objective: Examination of the lower extremity: Vascular (+) edema, Localized to the ingrown nail border (+) erythema, Localized to the ingrown nail border (-) ecchymosis (+) 2/4 pedal pulses, bilateral (+) Capillary Refill time: within normal limits (-) varicosities (+) pedal hair growth. Neurological (+) sensation with 5.07 [place] Artur monofilament examination to the most distal lower extremity (-) clonus present (-) tinel's sign. Dermatological (+) signs of soft tissue infection localized to the ingrown nail border, (+) paronychia (-) open wounds, (-) macerations, (-) ischemic tissue, (-) drainage/abscess (-) other primary or secondary lesions (+) normal temperature when compared to contralateral limb (+) normal color, tugor, and elasticity. Musculoskeletal (+) pain to ingrown nail border, (-) other pain on palpation or with range of motion throughout the remainder of the lower extremity, 5/5 muscle strength to extrinsic pedal muscle groups (-) evidence of compartment syndrome, (-) evidence of deep vein thrombosis. Assessment: Ingrown nail with paronychia. Treatment: -Extensive visit and patient agrees to treatment plan after thoroughly discussing risks, complciations, benefits, alternatives related to this ingrown nail. -Will start oral antibiotics prophylactically in attempts to treat the ingrown nail with conservative treatments before considering surgical intervention - Antibiotics - PRESCRIBED 04/30 KEFLEX - Pain - controlled with over the counter Tylenol - Wound - Cleanse and bandage with triple antibiotic ointment, daily. Soak daily in Epsom salt, written and verbal instruction dispensed. - Culture - Due to lack of specimen, no culture could be obtained. - Imaging - Not indicated - Weight bearing - as tolerated in protected shoes. - Return in 1 week for INGROWN NAIL PROCEDURE Patient advised to report to my clinic or the emergency room immediately with any questions or concerns. Patient Instructions: Discussion: A detailed discussion was provided to the patient with specific reference to etiology, pathology, alternate treatment options, and prognosis. All risks and complications (including side effects) with each treatment/medication alternative were outlined in detail including but not limited to: Pain, swelling, numbness, loss of function, loss of limb, loss of life, bleeding, blood clot, embolism, hematoma, scarring, worsening of condition, failure to relieve condition, surgery, over/under correction from procedure, additional/revisional surgery, reflex sympathetic dystrophy, complex regional pain syndrome, reoccurrence of deformity, joint, stiffness, flail toe, bone and/or soft tissue infection, blood clots, pulmonary embolism, possible , delayed or non-healing. X-rays, graphs and drawings were all used to assist with patient comprehension when appropriate. All patients questions were answered and stated they fully understood. No guarantee as to results or outcome of treatment was made. I have discussed with the patient or legally responsible person prior to obtaining consent: the risks, potential benefits and drawbacks, significant alternatives, potential for problems related to recuperation, likelihood of success, and possible results of non-treatment, and the patient or the legally responsible person has agreed to proceed 73511-0Ihbxmgd of Present IllnessLNProgress [id number] P3KQP1066QLOtftscpgp for patient uxfwQkaaxbsOhntuakprWJNVw66 Section NarrativeNARRATIVEFormatted C-CDA narrative textMHIEEPICMemorial Ylbhnjm071 [facility] [id number] GCYRRKBRTCV0721-17-55J85:47:47 [facility] Rigoberto 2024-05-17 15:44:45 [id number]+cDpejD 57PkSvyha1ZMtiVesexN9aEqMqWy/ssVV3a 8oXoc8247-70-26F51:44:45+ + + +--------- +| Health Maintenance | Due Date | Last Done | Comments |+ + +========= ==+ + | Pneumococcal Vaccine: Pediatrics (0 to 5 Years) and At-Risk Patients (6 to 64 | 2002 | | || Years) (1 of 2 - PCV) | | | |+ + +--------- --+ + | Varicella Vaccines (1 of 2 - 13+ 2-dose series) | 2009 | | |+ + +--------- --+ + | DTaP/Tdap/Td Vaccines (1 - Tdap) | 2015 | | |+ + +--------- --+ + | Hepatitis B Vaccines ( 3 - 19+ 3-dose series) | 2015 | | |+ + +--------- --+ + | Influenza Vaccine (Season Ended) | 07/22/2024 | | |+ + +--------- --+ + | HIB Vaccines | Aged Out | | No longer eligible based on patient's age to complete this topic |+ + +--------- --+ + | HPV Vaccines | Aged Out | | No longer eligible based on patient's age to complete this topic |+ + +--------- --+ + | Hepatitis A Vaccines | Aged Out | | No longer eligible based on patient's age to complete this topic |+ + +--------- --+ + | IPV Vaccines | Aged Out | | No longer eligible based on patient's age to complete this topic |+ + +--------- --+ + | Meningococcal Vaccine | Aged Out | | No longer eligible based on patient's age to complete this topic |+ + +--------- --+ + | Rotavirus Vaccines | Aged Out | | No longer eligible based on patient's age to complete this topic |+ + +--------- --+ + 01044-2Phbo of TreatmentLNPlan of TreatmentTXT1.2.840.032256.1.13.708 .2.7.8.215536.1361804|2.16.840.1.11 3883.10.20.22.2.10AVAvailable for patient cnzwLzbxfbcRcgkrwzbkBRAXz79 Section NarrativeNARRATIVEFormatted C-CDA narrative textIEEPICMemorial Yedjfsn142 [facility] [id number] SFQRNQIPXHP2046-78-77J13:44:45 [facility] 2024-05-17 15:44:45 [id number]+Holli+UFDx7vSf9qc VzpzPT1FmUN9smRWyRV3ieKmRuFE+UtpDKk rpARV8747-78-79U07:44:45+ +| Diagnosis |+ +| Abnormal foot finding - Primary |+ +56757-9TffafjcaosxNBLcbey PntlehkacPSL79158545-88LF-1101-6731 -639Z9DVR7510CZQsqqcylot for patient wvydMhhutdtNlkymboidNIOHe41 Section NarrativeNARRATIVEFormatted C-CDA narrative textIEEPICMemorial Orodoyt718 [facility] [id number] BNLDCVUZNAY5616-26-30G20:44:45 [facility] 2024-05-17 15:44:45 [id number]//2d1OWz75oNGXKqXi1HCyi ic6h3lIDKMqBu9zcchUbD5waogKWl0JcR0T bG/3758-07-57O27:44:45+ + + + +- ---------+| Young Adult Librarian | Relationship | Specialty | Start Date | End Date |+ +=== + +== + +| Surendra Haro Jr., MD | PCP - General | Internal Medicine | 05/10/24 | || | | | | || | | | | || | | | | || [address] [place] [facility] [address] | | | | || | | | | || [place] [address] | | | | || | | | | || | | | | |+ +--- + +-- + +49782-5Afraef t Care team informationLNCare TeamsTXT1.2.840.958365.1.13.708.2.7 .[id number]|2.16.840.1.962056 .10.20.22.2.500AVAvailable for patient jatuEwdaklcMchjpzvyhBIVBb63 Section NarrativeNARRATIVEFormatted C-CDA narrative textMHIEEPICMemorialanna Franklin920 Melonie Ram[id number] AFLTMSXYEZP1340-29-25T96:44:45 [facility] 2024-05-17 15:44:45 [id number] Ds3gH0n+2Gj2560xnCr+d+6zEPdpHDjIQPk nBTjQ9129-48-08L90:44:45 * Asmita Felder DPM - 05/17/2024 10:10 AM CDT History present illness - Status-post LEFT hallux partial nail avulsion, 05/10/24 Patient states total resolution to surgical procedure and is doing well without complaints Patient has completed taking antibiotics as directed Patient denies pain Patient denies local and systemic signs of infection Objective: Physical Exam Lower extremity Vascular (-) edema symmetrical to bilateral lower extremity (-) ecchymosis (-) erythema (+) 2/4 pedal pulses, bilateral (+) Capillary Refill time: within normal limits (-) varicosities (+) pedal hair growth. Neurological (+) sensation with 5.07 [place] Artur monofilament examination to the most distal lower extremity (-) clonus present (-) tinel's sign Dermatological (+) resolved surgical site from ingrown nail procedure, (-) paronychia (-) signs of infection, (-) open wounds, (-) macerations, (-) abscess, (-) ischemic tissue (-) other primary or secondary lesions (+) normal temperature when compared to contralateral limb (+) normal color, tugor, and elasticity. Musculoskeletal (-) pain to ingrown nail border, (-) other pain on palpation or with range of motion throughout the remainder of the lower extremity 5/5 muscle strength to extrinsic pedal muscle groups (-) evidence of compartment syndrome, (-) evidence of deep vein thrombosis. Assessment: Status-post LEFT hallux partial nail avulsion, 05/10/24 Plan: - Extensive visit discussing ingrown nail procedure risks, complications, benefits. - Antibiotics - completed - Pain - over the counter medication of choice, as needed - Wound - apply topical antibiotic ointment to help keep moisturized - Culture - not indicated - Imaging - not indicated - Weight bearing - as tolerated in protected shoes - Return as needed Patient advised to report to my clinic or the emergency room immediately with any questions or concerns.Patient Instructions: Discussion: A detailed discussion was provided to the patient with specific reference to etiology, pathology, alternate treatment options, and prognosis. All risks and complications (including side effects) with each treatment/medication alternative were outlined in detail including but not limited to: Pain, swelling, numbness, loss of function, loss of limb, bleeding, hematoma, scarring, failure to relieve condition, surgery, additional/revisional surgery, reflex sympathetic dystrophy, complex regional pain syndrome, reoccurrence of deformity, joint stiffness, flail toe, bone and/or soft tissue infection, blood clots, pulmonary embolism, possible ,delayed or non-healing. X-rays, graphs and drawings were all used to assist with patient comprehension when appropriate. All patients questions were answered and stated they fully understood. No guarantee as to results or outcome of treatment was made. I have discussed with the patient or legally responsible person prior to obtaining consent: the risks, potential benefits and drawbacks, significant alternatives, potential for problems related to recuperation, likelihood of success, and possible results of non-treatment, and the patient or the legally responsible person has agreed to proceed 35301-4Qgchvan of Present IllnessLNProgress [id number]-[id number] W1YEB4301KQEwczrkjyx for patient smpiExjaguwHhnoguriwWPOSw29 Section NarrativeNARRATIVEFormatted C-CDA narrative textMHIEEPICMemorial Juhoopv903 [facility] [id number] HTYXDCWKRHD6621-33-09F58:44:45 [facility]24-[facility] 13:23:45 5780-36-89Q39:23:45 Received Surgical and Consent Form and it was scanned into pt chart. 41126-1Kupkjxwys encounter UzytPJ9962-57-44C05:24:17Telephone encounter NoteTXT1.2.840.905814.1.13.104.2.7. [id number]|[id number] for patient rakj54293-0AkwoSQCFXEDORLYHhiqjtvta C-CDA narrative [id number] [address] Km[id number] 1TXHKGOVATESMYKOSTYJBMO8289-94-34E9 3:24:171.2.840.168322.1.72.3.15|1.2 .840.245855.1.13.104.2.7.2.727879_2 [id number] [facility]"
[2024-06-03] MEDS ORDERED: NA CHLORIDE 0.9% 1,000 ML ONE (17:47)
[2024-06-03] MEDS ORDERED: NA CHLORIDE 0.9% 100 ML ONE (17:47)
[2024-06-03] MEDS ORDERED: CEFEPIME 2 GM VIAL ONE (17:48)
[2024-06-03 17:51] LABS: Absolute Basophils 0.1 K/uL (0-0.5); Absolute Eosinophils 0.2 K/uL (0-0.5); Absolute Lymphocytes (CBC) 3.8 K/uL (0.7-4.9); Absolute Monocytes 0.6 K/uL (0.1-1.3); Absolute Neutrophil 6.2 K/uL (1.8-8.0); Basophils % 0.7 % (0-1.3); Eosinophils % 1.8 % (0-4.4); Hematocrit 42.2 % (39.6-49.0); Hemoglobin 13.6 g/dL (13.6-17.9); MCH 28.8 pg (27.0-35.0); MCHC 32.3 g/dL (32.0-36.0); MPV 8.5 fL (7.6-11.3); Monocytes % 5.3 % (3.3-12.3); Neutrophils % 57.2 % (41.7-73.7); Platelets 279 thou/uL (152-406); RBC Red Blood Cell Count 4.74 M/uL (4.33-5.43)
[2024-06-03 17:54] LABS: Arterial Blood Carboxyhemoglob 0.8 % (0-1.5); Blood Gas Oxyhemoglobin 36.2 % (94-97); Blood O2 Saturation 37.1 % (92-98.5)
[2024-06-03 17:55] LABS: Blood Gas THB 14.3 g/dl (12-18)
--- NOTE | 2024-06-03 18:05 | RAD REPORT ---
EXAM DESCRIPTION: CT - Chest For Pe Angio - 06/03/2024 5:58 pm CLINICAL HISTORY: DYSPNEA COMPARISON: No comparisons TECHNIQUE: Dynamically enhanced axial 3 mm thick images of the chest were obtained during administra tion of <100> mL Isovue 370 IV contrast. Coronal and oblique reconstruction images were generated and reviewed. Exam utilizes a protocol for optimal evaluation of pulmonary arterial tree. Maximum intensity projections 3D imaging was utilized All CT scans are performed using dose optimization technique as appropriate and may include automated exposure control or mA/KV adjustment according to patient size. FINDINGS: Chest Wall: No suspicious thyroid nodules or pathologic lymphadenopathy. Lungs: Widespread ground-glass opacities with interlobular septal thickening. Pleura: Moderate right and small left pleural effusion Mediastinum/viktoriya: Mediastinal and hilar lymphadenopathy. Circumferentially thickened esophagus. Pulmonary arteries/Aorta: No filling defect identified. No aortic aneurysm. Heart: No significant pericardial effusion. Moderate to severe cardiomegaly. Upper abdomen: No acute abnormality. Bones: No acute abnormality. IMPRESSION: Negative for pulmonary embolism. Severe pulmonary edema with moderate right and small le ft pleural effusion.
[2024-06-03 18:09] LABS: Albumin/Globulin Ratio 1.1 (1.1-1.8); Anion Gap 9.9 mEq/L (5.0-15.0); Bilirubin Total 0.5 mg/dL (0.2-1.0); Globulin 2.8 g/dL (2.3-3.5); Potassium 3.9 mEq/L (3.5-5.1); Protein, Total 5.8 g/dL (6.4-8.2); Troponin High Sensitivity 22.1 pg/mL (<58.9)
[2024-06-03 18:23] LABS: SARS-CoV-2 Antigen CONTROL BLUE LINE VIS/BG OK; SARS-CoV-2 Antigen Rapid Res Negative (Negative)
[2024-06-03 18:38] LABS: Specific Gravity 1.018 (1.005-1.030); Urine Bilirubin NEGATIVE (Negative); Urine Blood Negative (Negative); Urine Clarity Clear (Clear); Urine Color Light-Yellow (Yellow); Urine Glucose NEGATIVE (Negative); Urine Ketones NEGATIVE (Negative); Urine Microscopic Reflex YN NO UMIC; Urine Nitrite NEGATIVE (Negative); Urine Protein NEGATIVE (Negative); Urine Urobilinogen Normal (Normal)
--- NOTE | 2024-06-03 18:42 | EDPHYS ---
Physician Documentation [facility] Name: Arnel Sharpe Age: 29 yrs Sex: Male : 1995 Arrival Date: 06/03/2024 Time: 16:56 Bed 6 Private MD: ED Physician Lori Zavala HPI: 06/03 18:25 This 29 yrs old Male presents to ER via Wheelchair with complaints of sent by altus:SOB sp3 rapid heart rate. 18:25 29-year-old male with a history of prior non-Hodgkin's lymphoma presents to the ED with sp3 chief complaint dyspnea on exertion. Patient was initially seen 1 week ago with altered health and had a negative CT chest PE protocol but did demonstrate bilateral bronchopneumonia with pleural effusions and was placed on steroids and antibiotics outpatient. Symptoms have not improved and those same symptoms continue here today. He presents with dyspnea on exertion that is progressing. He denies any fever, abdominal pain, nausea, vomiting, diarrhea, syncope, near syncope, and recent weight loss, night sweats, recurrence of lymphoma, or any other signs or symptoms on ROS at this time.. Historical: - Allergies: 17:19 No Known Allergies; iw - Home Meds: 17:19 None [Active]; iw - PMHx: 19:07 lymphoma; me1 - PSHx: 17:19 None; iw - Immunization history:: Adult Immunizations not up to date. - Infectious Disease History:: Denies. - Social history:: Smoking status: Patient denies any tobacco usage or history of. ROS: 18:26 Eyes: Negative for injury, pain, redness, and discharge, ENT: Negative for injury, sp3 pain, and discharge, Neck: Negative for injury, pain, and swelling, Cardiovascular: Negative for chest pain, palpitations, and edema, Abdomen/GI: Negative for abdominal pain, nausea, vomiting, diarrhea, and constipation, Back: Negative for injury and pain, MS/Extremity: Negative for injury and deformity, Skin: Negative for injury, rash, and discoloration, Neuro: Negative for headache, weakness, numbness, tingling, and seizure, Psych: Negative for depression, anxiety, suicide ideation, homicidal ideation, and hallucinations, Endocrine: Negative for neck swelling, polydipsia, polyuria, polyphagia, and marked weight changes, Hematologic/Lymphatic: Negative for swollen nodes, abnormal bleeding, and unusual bruising, 18:26 All other systems are negative, Exam: 18:26 Constitutional: This is a well developed, well nourished patient who is awake, alert, sp3 and in no acute distress. Head/Face: Normocephalic, atraumatic. Eyes: Pupils equal round and reactive to light, extra-ocular motions intact. Lids and lashes normal. Conjunctiva and sclera are non-icteric and not injected. Cornea within normal limits. Periorbital areas with no swelling, redness, or edema. ENT: Nares patent. No nasal discharge, no septal abnormalities noted. External auditory canals are clear. Oropharynx with no redness, swelling, or masses, exudates, or evidence of obstruction, uvula midline. Mucous membranes moist. Neck: Trachea midline, no thyromegaly or masses palpated, and no cervical lymphadenopathy. Supple, full range of motion without nuchal rigidity, or vertebral point tenderness. No Meningismus. Chest/axilla: Normal chest wall appearance and motion. Nontender with no deformity. No lesions are appreciated. Abdomen/GI: Soft, non-tender, with normal bowel sounds. No distension or tympany. No guarding or rebound. No evidence of tenderness throughout. Back: No spinal tenderness. No costovertebral tenderness. Full range of motion. Skin: Warm, dry with normal turgor. Normal color with no rashes, no lesions, and no evidence of cellulitis. MS/ Extremity: Pulses equal, no cyanosis. Neurovascular intact. Full, normal range of motion. Neuro: Awake and alert, GCS 15, oriented to person, place, time, and situation. Cranial nerves II-XII grossly intact. Motor strength 5/5 in all extremities. Sensory grossly intact. Cerebellar exam normal. Normal gait. Psych: Awake, alert, with orientation to person, place and time. Behavior, mood, and affect are within normal limits. 18:26 Cardiovascular: Rate: tachycardic, Pulses: 18:26 Respiratory: Decreased breath sounds bilaterally but present. Respiratory rate 20. Pulse oxygenation 95% on room air however significant dyspnea on exertion., Vital Signs: 17:14 BP 122 / 79; Pulse 128; Resp 22 S; Pulse Ox 95% on R/A; Weight 131.54 kg; Height 5 ft. iw 11 in. ; 18:00 BP 116 / 79; Pulse 122; Resp 23; Temp 98.8; Pulse Ox 92% on R/A; me1 19:44 BP 125 / 49; Pulse 119; Resp 18; Temp 98; Pulse Ox 100% 1 lpm ; cp4 17:14 Body Mass Index 40.45 (131.54 kg, 180.34 cm) iw MDM: 17:27 Patient medically screened. sp3 18:29 Data reviewed: vital signs, nurses notes, lab test result(s), EKG, radiologic studies. sp3 18:40 ED course: Patient sees Dr. Zavala here at this hospital for his prior oncology. Will sp3 admit patient to hospitalist service and continue IV fluids and antibiotics. Lactate at 2.7.. 06/03 17:26 Order name: Blood Culture Adult (2) sp3 06/03 17:26 Order name: CBC with Diff; Complete Time: 18:13 sp3 06/03 17:26 Order name: CMP; Complete Time: 18:13 sp3 06/03 17:26 Order name: Lactate w/ 2H reflex if indic.; Complete Time: 18:29 sp3 06/03 17:26 Order name: Protime (+inr) sp3 06/03 17:26 Order name: Ptt, Activated sp3 06/03 17:26 Order name: Urinalysis w/ reflexes sp3 06/03 17:26 Order name: ABG: vbg; Complete Time: 18:13 sp3 06/03 17:26 Order name: SARS RAPID; Complete Time: 18:29 sp3 06/03 17:26 Order name: Flu; Complete Time: 18:29 sp3 06/03 17:26 Order name: Strep; Complete Time: 18:29 sp3 06/03 17:26 Order name: Troponin High Sensitivity; Complete Time: 18:13 sp3 06/03 18:14 Order name: Add On-Lab sp3 06/03 18:15 Order name: BNP sp3 06/03 18:26 Order name: Throat Culture EDMS 06/03 19:25 Order name: Urinalysis w/ reflexes EDMS 06/03 19:25 Order name: CBC with Automated Diff EDMS 06/03 19:25 Order name: CBC with Automated Diff EDMS 06/03 19:25 Order name: Comprehensive Metabolic Panel EDMS 06/03 19:25 Order name: Comprehensive Metabolic Panel [facility] 06/03 17:49 Order name: Chest For Pe Angio; Complete Time: 18:13 EDMS 06/03 19:28 Order name: Echo with Doppler EDMO 06/03 17:26 Order name: EKG; Complete Time: 17:27 sp3 06/03 19:25 Order name: CONS Physician Consult [facility] 06/03 17:26 Order name: Accucheck; Complete Time: 18:33 sp3 06/03 17:26 Order name: Cardiac monitoring; Complete Time: 17:43 sp3 06/03 17:26 Order name: EKG - Nurse/Tech; Complete Time: 18:33 sp3 06/03 17:26 Order name: IV Saline Lock - Large Bore; Complete Time: 17:43 sp3 06/03 17:26 Order name: Labs collected and sent; Complete Time: 17:43 sp3 06/03 17:26 Order name: O2 Per Protocol; Complete Time: 17:43 sp3 06/03 17:26 Order name: O2 Sat Monitoring; Complete Time: 17:43 sp3 06/03 17:26 Order name: Vital Signs; Complete Time: 17:43 sp3 Administered Medications: 18:20 Drug: NS 0.9% IV 1000 ml IV at 1 bolus Per protocol; 1000 mL bolus Route: IV; Rate: 1 me1 bolus; Site: right antecubital; 18:20 Drug: Cefepime IVPB 2 grams IVPB at 200 ml/hr once over 30 mins; (mix in NS 100 mL) me1 Route: IVPB; Rate: 200 ml/hr; Infused Over: 30 mins; Site: right antecubital; Disposition Summary: 06/03/24 18:41 Hospitalization Ordered Notes: Hospitalization Status: Inpatient Admission sp3 Provider: Ciro Zaragoza sp3 Condition: Stable sp3 Problem: an acute exacerbation sp3 Symptoms: have worsened sp3 Bed/Room Type: Standard sp3 Location: Intensive Care Unit(06/03/24 19:28) rv1 Room Assignment: 1-(06/03/24 19:28) rv1 Diagnosis - Pneumonia, sepsis, possible recurrence of lymphoma sp3 Forms: - Medication Reconciliation Form sp3 - SBAR form sp3 - Leadership Thank You Letter sp3 Signatures: Dispatcher [employer] Anaya Lacey RN RN iw Patel, Setul, MD MD sp3 Gaby Cannon rv1 Morelia Harding RN RN me1 Corrections: (The following items were deleted from the chart) 17:49 17:27 Thorax Wo Con+CT.RAD.BRZ ordered. EDMS EDMS 19:07 17:19 PMHx: None; enoc sd1 19:28 18:41 Telemetry/MedSurg (Inpatient) sp3 rv1 19: 18:41 sp3 rv1
--- NOTE | 2024-06-03 18:42 | ER ---
Nurse's Notes [facility] Name: Arnel Sharpe Age: 29 yrs Sex: Male : 1995 Arrival Date: 06/03/2024 Time: 16:56 Bed 6 Private MD: Diagnosis: Pneumonia, sepsis, possible recurrence of lymphoma Presentation: 06/03 17:14 Chief complaint: Patient states: was diagnosed with ada bronchopneumonia on May 24 at [place], has been on Levaquin, Decadron, Symbicort, is still having SOB and feels like his heart is beating fast, no fever, denies chest pain, +intermittent cough. Coronavirus screen: Client presents with at least one sign or symptom that may indicate coronavirus-19. Ebola Screen: No symptoms or risks identified at this time. 17:14 Method Of Arrival: Wheelchair iw 17:16 Risk Assessment: Do you want to hurt yourself or someone else? Patient reports no iw desire to harm self or others. 17:16 Acuity: EDER 2 iw 17:17 Initial Sepsis Screen: Does the patient meet any 2 criteria? RR > 20 per min. HR > 90 iw bpm. Does the patient have a suspected source of infection? No. Patient's initial sepsis screen is negative. Onset of symptoms was June 01, 2024. Historical: - Allergies: 17:19 No Known Allergies; iw - Home Meds: 17:19 None [Active]; iw - PMHx: 19:07 lymphoma; me1 - PSHx: 17:19 None; iw - Immunization history:: Adult Immunizations not up to date. - Infectious Disease History:: Denies. - Social history:: Smoking status: Patient denies any tobacco usage or history of. Screenin:20 [facility] ED Fall Risk Assessment (Adult) History of falling in the last 3 months, me1 including since admission No falls in past 3 months (0 pts) Confusion or Disorientation No (0 pts) Intoxicated or Sedated No (0 pts) Impaired Gait No (0 pts) Mobility Assist Device Used No (0 pt) Altered Elimination No (0 pt) Score/Fall Risk Level 0 - 2 = Low Risk Maintained a safe environment, Provided non-skid footwear, Hourly rounding (assess needs \T\ fall precautionary measures) done. Abuse screen: Denies threats or abuse. Nutritional screening: No deficits noted. Tuberculosis screening: No symptoms or risk factors identified. Assessment: 17:20 General: Appears ill, obese, well groomed, well developed, Behavior is calm, me1 cooperative, appropriate for age, Reports was diagnosed with ada bronchopneumonia on May 24 at [place], has been on Levaquin, Decadron, Symbicort, is still having SOB and feels like his heart is beating fast, no fever, denies chest pain, +intermittent cough. Pain: Denies pain. Neuro: Level of Consciousness is awake, alert, obeys commands, Oriented to person, place, time, situation, Appropriate for age. Cardiovascular: Reports palpitations, shortness of breath, Patient's skin is warm and dry. Rhythm is sinus tachycardia. Respiratory: Airway is patent Respiratory effort is even, unlabored, Respiratory pattern is regular, tachypnea. Respiratory: Reports shortness of breath on exertion cough that is persistent. GI: No signs and/or symptoms were reported involving the gastrointestinal system. : No signs and/or symptoms were reported regarding the genitourinary system. EENT: No signs and/or symptoms were reported regarding the EENT system. Derm: Skin is intact, is healthy with good turgor, Skin is pink, warm \T\ dry. Musculoskeletal: Swelling present in right foot and left foot. 19:22 General: Appears ill, Behavior is calm, cooperative, appropriate for age. Pain: Denies cp4 pain. Cardiovascular: Reports palpitations, shortness of breath, Patient's skin is warm and dry. Rhythm is sinus tachycardia. Respiratory: Reports shortness of breath cough that is Airway is patent Respiratory effort is even, unlabored, Respiratory pattern is regular. Vital Signs: 17:14 BP 122 / 79; Pulse 128; Resp 22 S; Pulse Ox 95% on R/A; Weight 131.54 kg; Height 5 ft. iw 11 in. ; 18:00 BP 116 / 79; Pulse 122; Resp 23; Temp 98.8; Pulse Ox 92% on R/A; me1 19:44 BP 125 / 49; Pulse 119; Resp 18; Temp 98; Pulse Ox 100% 1 lpm ; cp4 17:14 Body Mass Index 40.45 (131.54 kg, 180.34 cm) iw ED Course: 17:02 Patient arrived in ED. ra3 17:17 Triage completed. iw 17:17 Arm band placed on. iw 17:18 Lori Zavala MD is Attending Physician. sp3 17:20 Patient has correct armband on for positive identification. Bed in low position. Call me1 light in reach. Side rails up X2. Provided Education on: POC. Verbalized understanding. . Client placed on continuous cardiac and pulse oximetry monitoring. NIBP monitoring applied. rn medication on. Pulse ox on. NIBP on. 17:20 No provider procedures requiring assistance completed. me1 17:22 Morelia Harding, ISREAL is Primary Nurse. me1 17:40 Initial lab(s) drawn, by me, sent to lab. First set of blood cultures drawn by me. aa5 17:43 Inserted saline lock: 18 gauge in right antecubital area, using aseptic technique. aa5 17:45 Strep Sent. me1 17:45 Flu Sent. me1 17:45 SARS RAPID Sent. me1 17:45 ABG: vbg Sent. me1 17:45 COVID swab sent to lab. Flu and/or RSV swab sent to lab. Strep swab sent to lab. me1 17:46 Troponin High Sensitivity Sent. me1 17:46 Blood Culture Adult (2) Sent. me1 17:46 CBC with Diff Sent. me1 17:46 CMP Sent. me1 17:46 Lactate w/ 2H reflex if indic. Sent. me1 17:46 Protime (+inr) Sent. me1 17:46 Ptt, Activated Sent. me1 17:59 Chest For Pe Angio In Process Unspecified. EDMS 18:10 Second set of blood cultures drawn by me. me1 18:20 Urine collected: clean catch specimen, cloudy. me1 18:21 BNP Sent. me1 18:21 Add On-Lab Sent. me1 18:33 EKG done, by ED staff, reviewed by Lori Zavala MD. me1 18:41 Ciro Zaragoza MD is Hospitalizing Provider. sp3 19:45 Patient admitted, IV remains in place. cp4 Administered Medications: 18:20 Drug: NS 0.9% IV 1000 ml IV at 1 bolus Per protocol; 1000 mL bolus Route: IV; Rate: 1 me1 bolus; Site: right antecubital; 18:20 Drug: Cefepime IVPB 2 grams IVPB at 200 ml/hr once over 30 mins; (mix in NS 100 mL) me1 Route: IVPB; Rate: 200 ml/hr; Infused Over: 30 mins; Site: right antecubital; Medication: 17:20 VIS not applicable for this client. me1 Outcome: 18:41 Decision to Hospitalize by Provider. sp3 19:45 Admitted to ICU accompanied by nurse, via stretcher, with oxygen, on monitor, with cp4 chart, Report called to Meghna 19:45 Condition: stable 19:45 Instructed on the need for admit, 19:46 Patient left the ED. cp4 Signatures: Dispatcher [employer] EDAnaya Myers RN RN iw Chasidy Smith RN RN aa5 Lori Zavala MD MD sp3 Morelia Harding RN RN me1 Ayde Mei cp4 Maritza Escobar ra3 Corrections: (The following items were deleted from the chart) 18:33 17:14 Chief complaint: Patient states: was diagnosed with ada bronchopneumonia on May me1 4 at [place], has been on Levaquin, Decadron, Symbicort, is still having SOB and feels like his heart is beating fast, no fever, denies chest pain, +intermittent cough iw 19:07 17:19 PMHx: None; [facility]
[2024-06-03 18:50] LABS: PT Prothrombin Time 10.9 SECONDS (9.4-12.5); PTT, Activated Partial Thromb 28.3 SECONDS (24.3-36.9); Protime INR 0.97
[2024-06-03] MEDS ORDERED: IPRATROPIUM BROM 0.5MG/2.5ML NEB PRN (19:20)
[2024-06-03] MEDS ORDERED: ACETAMINOPHEN 325 MG TABLET PO PRN (19:20)
[2024-06-03] MEDS ORDERED: ONDANSETRON 4 MG/2 ML VIAL IV PRN (19:20)
[2024-06-03] MEDS ORDERED: ALBUTEROL 2.5 MG/3 ML NEB SOL NEB PRN (19:20)
--- NOTE | 2024-06-03 19:20 | P.HP ---
Certification for Inpatient Patient admitted to: Inpatient With expected LOS: >2 Midnights Practitioner: I am a practitioner with admitting privileges, knowledge of patient current condition, hospital course, and medical plan of care. Services: Services provided to patient in accordance with Admission requirements found in Title 42 Section 412.3 of the Code of Federal Regulations Patient History Date of Service: 06/04/24 Reason for admission: Shortness of breath, palpitation History of Present Illness: 29 yrs old Male with past medical history of non-Hodgkin's lymphoma not on chemotherapy before Followed by Dr. Zavala came in with shortness of breath and rapid heart rate. He was been doing okay but for the last 1 week he was having shortness of breath and palpitation and fatigue which has been progressively worsening. He developed dyspnea on exertion even with minimal exertions he has been dyspneic. But now he developed dyspnea dyspnea even at rest. Denies any c hest pain. No fever or chills. No nausea vomiting or diarrhea. No sick contacts. No history of any trauma. Patient was assessed in the ER and had a CT PE protocol which was negative for any acute changes or PE but showing bronchopneumonia with pleural effusions and is admitted for further management Allergies No Known Allergies Allergy (Verified 06/04/24 00:07) Home medications list reviewed: Yes Home Medications: NK [No Home Meds] 06/04/24 - Past Medical/Surgical History Past Medical History: Reviewed- Non-Contributory Past Surgical History: Reviewed- Non-Contributory - Family History Family History: Reviewed- Non-Contributory - Family History Father -: Heart disease, Hypertension Sister -: Lung disease Notes: asthma - Social History Smoking Status: Never smoker Review of Systems 10-point ROS is otherwise unremarkable Physical Examination - Vital Signs Temperature: 98.1 F Blood Pressure: 109/64 Pulse: 126 Respirations: 18 Pulse Ox (%): 96 - Physical Exam General: Alert, Oriented x3, Mild distress, Obese HEENT: Atraumatic, Normocephalic Neck: Supple Respiratory: Diminished, Crackles/rales, Expiratory wheezes Cardiovascular: Normal S1 S2, Other (Tachycardia ), Edema Capillary refill: <2 Seconds Gastrointestinal: Soft and benign, W/out hepatosplenomegaly Musculoskeletal: No clubbing, Swelling Integumentary: No rashes, No breakdown Neurological: Normal gait, Normal strength at 5/5 x4 extr Lymphatics: No axilla or inguinal lymphadenopathy - Studies Laboratory Data (last 24 hrs) 06/03/24 06/03/24 06/03/24 17:40 17:40 17:40 WBC 10.80 Hgb 13.6 Hct 42.2 Plt Count 279 PT 10.9 INR 0.97 APTT 28.3 Sodium 141 Potassium 3.9 BUN 17 Creatinine 1.09 Glucose 140 H Total Bilirubin 0.5 AST 36 ALT 118 H Alkaline Phosphatase 65 Microbiology Data (last 24 hrs): 06/03/24 17:36 Throat Group A Streptococcus Rapid Screen - Final 06/03/24 17:36 Nasopharnyx Influenza Type A Antigen Screen - Final 06/03/24 17:36 Nasopharnyx Influenza Type B Antigen Screen - Final Assessment and Plan - Problems (Diagnosis) (1) Bronchopneumonia Current Visit: Yes Status: Acute Plan: Bronchopneumonia Started on IV antibiotic Monitor closely under telemetry CT findings noted Will obtain cultures Will change antibiotic as per sensitivity Acute hypoxic hypercapnic respiratory failure Started on bronchodilators Oxygen supplementation Manage BiPAP if not better Monitor ABG Pulmonary edema Acute on chronic CHF possibly systolic/diastolic Monitor closely on telemetry Started on aggressive diuresis Oxygen supplementation Will try to wean down oxygen requirement Continue home medications Titrate as needed Will obtain an echocardiogram Cardiology consult if not better in a.m. History of non-Hodgkin's lymphoma Followed by Dr. Zavala Monitor CBC daily GI/DVT prophylaxis Advanced directive full code Discharge Plan: Home Plan to discharge in: 48 Hours - Advance Directives Does patient have a Living Will: No Does patient have a Durable POA for Healthcare: No - Code Status/Comfort Care Code Status: Full Code Time Spent Managing Pts Care (In Minutes): 48
[2024-06-03] MEDS: FUROSEMIDE 40 MG/4 ML VIAL IV SCH (20:41)
[2024-06-03] MEDS: CEFTRIAXONE 1,000 MG in NA CHLORIDE 0.9% 50 ML IVPB SCH (20:44)
[2024-06-03] MEDS: AZITHROMYCIN IV 500 MG in NA CHLORIDE 0.9% 250 ML IVPB SCH (21:00)
[2024-06-04 04:52] LABS: Absolute Basophils 0.1 K/uL (0-0.5); Absolute Eosinophils 0.3 K/uL (0-0.5); Absolute Lymphocytes (CBC) 3.4 K/uL (0.7-4.9); Absolute Neutrophil 7.7 K/uL (1.8-8.0); Eosinophils % 2.2 % (0-4.4); Hematocrit 43.8 % (39.6-49.0); Hemoglobin 14.3 g/dL (13.6-17.9); Lymphocytes % 27.1 % (15.3-44.8); MCH 28.8 pg (27.0-35.0); MCHC 32.7 g/dL (32.0-36.0); MPV 8.3 fL (7.6-11.3); Monocytes % 8.2 % (3.3-12.3); Neutrophils % 61.5 % (41.7-73.7); Platelets 269 thou/uL (152-406); RBC Red Blood Cell Count 4.97 M/uL (4.33-5.43); Red Cell Distribution Width 14.6 % (12.1-15.2)
[2024-06-04 05:11] LABS: Albumin 3.2 g/dL (3.4-5.0); Albumin/Globulin Ratio 1.1 (1.1-1.8); Anion Gap 8.5 mEq/L (5.0-15.0); Bilirubin Total 0.9 mg/dL (0.2-1.0); Magnesium 2.1 mg/dL (1.6-2.4); Potassium 3.5 mEq/L (3.5-5.1); Protein, Total 6.2 g/dL (6.4-8.2)
[2024-06-04] MEDS: POTASSIUM CL SA 10 MEQ TAB PO ONE ×2 (05:57→08:30)
[2024-06-04] MEDS: ENOXAPARIN 40 MG/0.4 ML SQ SCH (08:30)
--- NOTE | 2024-06-04 11:58 | P.PN ---
Subjective Date of Service: 06/04/24 Chief Complaint: Shortness of breath, palpitation Patient reports feeling much better today. He is saturating well on 2 L O2 by NC. He is diuresing well with the IV lasix. He reports improvement in his SOB. Physical Examination - Vital Signs Temperature: 98.3 F Blood Pressure: 99/56 Pulse: 125 Respirations: 14 Pulse Ox (%): 100 - Studies Laboratory Data (last 24 hrs) 06/03/24 06/03/24 06/03/24 17:40 17:40 17:40 WBC 10.80 Hgb 13.6 Hct 42.2 Plt Count 279 PT 10.9 INR 0.97 APTT 28.3 Sodium 141 Potassium 3.9 BUN 17 Creatinine 1.09 Glucose 140 H Total Bilirubin 0.5 AST 36 ALT 118 H Alkaline Phosphatase 65 Microbiology Data (last 24 hrs): 06/03/24 17:36 Throat Group A Streptococcus Rapid Screen - Final 06/03/24 17:36 Nasopharnyx Influenza Type A Antigen Screen - Final 06/03/24 17:36 Nasopharnyx Influenza Type B Antigen Screen - Final Assessment And Plan - Plan Physical Examination General: Well-built, Not in acute distress. HEENT: PERRLA, EOMI, anicteric sclera, conjunctiva not pale. Neck: Supple, no elevated JVD, no thyromegaly. Lungs: Mild bibasilar Rales, adequate breath sounds bilaterally no rhonchi. Heart: S1-S2 heard, rapid, no murmur no gallop no rub. Normal capillary refill. Abdomen: Soft, nontender, nondistended, no hepatosplenomegaly. Extremities: No pedal edema. No deformity. Neuro: No cranial nerve deficit, no focal motor deficit. Psychiatry: Awake, normal behavior, normal affect. Skin: Warm and dry, no rashes. Assessment and plan: Bronchopneumonia Continue IV antibiotic CT findings noted Follow cultures Acute hypoxic hypercapnic respiratory failure Acute pulmonary edema Acute on chronic systolic heart failure Patient's symptoms rapidly improved with IV Lasix. He is currently tolerating oxygen by nasal cannula Continue Lasix Echocardiogram Bronchodilators as needed Wean off oxygen as tolerated Cardiology consult pending echocardiogram result. History of non-Hodgkin's lymphoma Followed by Dr. Zavala Monitor CBC daily Follow-up as outpatient DVT prophylaxis: Lovenox Advanced directive full code
--- NOTE | 2024-06-04 13:43 | RAD REPORT ---
EXAM DESCRIPTION: RAD - Chest Single View - 06/04/2024 1:35 pm CLINICAL HISTORY: Follow-up pulmonary edema COMPARISON: Chest Single View dated 08/20/2021; Chest For Pe Angio dated 06/03/2024 FINDINGS: Lines: None. Lungs: Hazy bilateral opacities. The degree of vascular engorgement identified on the CT from 024 is less pronounced . Pleural: Blunted right costophrenic angle. Cardiac: The heart size is within normal limits. Mediastinum: Within normal limits. Bones: No acute fractures. Other: None IMPRESSION: Pulmonary edema with small right pleural effusion. Comparing across modalities with yest tamy's CT, the edema does appear modestly improved.
--- NOTE | 2024-06-04 13:57 | ECHO ---
HEIGHT: 5 ft 11 in WEIGHT: 315 lb 1 oz DATE OF STUDY: 06/04/[address]: Tamir Zaragoza DO 2-DIMENSIONAL: YES M.MODE: YES DOPPLER: YES COLOR FLOW: YES TDS: PORTABLE: YES DEFINITY: BUBBLE STUDY: DIAGNOSIS: CONGESTIVE HEART FAILURE CARDIAC HISTORY: CATHERIZATION: NO SURGERY: NO PROSTHETIC VALVE: NO PACEMAKER: NO MEASUREMENTS (cm) DIASTOLIC (NORMALS) SYSTOLIC (NORMALS) IVSd 1.3 (0.6-1.2) LA Diam 5.0 (1.9-4.0) LVEF 25-30% LVIDd 6.0 (3.5-5.7) LVIDs 5.4 (2.0-3.5) %FS 9% LVPWd 1.4 (0.6-1.2) Ao Diam 3.0 (2.0-3.7) 2 DIMENSIONAL ASSESSMENT: RIGHT ATRIUM: NORMAL LEFT ATRIUM: ENLARGED RIGHT VENTRICLE: NORMAL LEFT VENTRICLE: DILATED LEFT VENTRICLE TRICUSPID VALVE: MILD TRICUSPID REGURGITATION MITRAL VALVE: MODERATE MITRAL REGURGITATION PULMONIC VALVE: NORMAL AORTIC VALVE: NORMAL PERICARDIAL EFFUSION: NONE AORTIC ROOT: NORMAL LEFT VENTRICULAR WALL MOTION: SEVERE GLOBAL HYPOKINESIS DOPPLER/COLOR FLOW: SEE BELOW COMMENTS: 1. SEVERELY DEPRESSED LEFT VENTRICULAR EJECTION FRACTION 25-30% 2. SEVERE GLOBAL HYPOKINESIS 3. LEFT ATRIAL ENLARGEMENT 4. MODERATE TO SEVERE MITRAL REGURGITATION 5. MILD TRICUSPID REGURGITATION TECHNOLOGIST: BRYCE SANTORO
--- NOTE | 2024-06-04 16:35 | EKG ---
Test Date: 2024-06-03 Test Time: 18:29:04 Stopper Setter: MEASUREMENT RESULTS: Intervals: Rate: 119 RI: 162 QRSD: 96 QT: 326 QTc: 458 [place]: P: 52 RI: 162 QRS: -48 T: 72 INTERPRETIVE STATEMENTS: Sinus tachycardia Possible Left atrial enlargement Left axis deviation Nonspecific ST and T wave abnormality Abnormal ECG Compared to ECG 08/20/2021 17:56:41 ST (T wave) deviation now present Electronically Signed On 06-04-24 16:33:32 CDT by Leonidas Peterson
[2024-06-05 05:04] LABS: Absolute Basophils 0.1 K/uL (0-0.5); Absolute Eosinophils 0.5 K/uL (0-0.5); Absolute Lymphocytes (CBC) 3.1 K/uL (0.7-4.9); Anion Gap 12.4 mEq/L (5.0-15.0); Basophils % 0.6 % (0-1.3); Eosinophils % 4.3 % (0-4.4); Hemoglobin 13.5 g/dL (13.6-17.9); Lymphocytes % 29.6 % (15.3-44.8); MCH 29.3 pg (27.0-35.0); MCHC 33.8 g/dL (32.0-36.0); MCV 86.7 fL (80-100); MPV 8.5 fL (7.6-11.3); Magnesium 2.1 mg/dL (1.6-2.4); Monocytes % 9.2 % (3.3-12.3); Neutrophils % 56.3 % (41.7-73.7); Nucleated Red Blood Cells % 0.4 % (0-0); Phosphorus 4.3 mg/dL (2.5-4.9); Platelets 252 thou/uL (152-406); Potassium 3.4 mEq/L (3.5-5.1); RBC Red Blood Cell Count 4.62 M/uL (4.33-5.43); Red Cell Distribution Width 14.3 % (12.1-15.2)
[2024-06-05] MEDS: POTASSIUM CL SA 10 MEQ TAB PO ONE ×2 (06:04→12:43)
--- NOTE | 2024-06-05 06:55 | P.PN ---
Date of Service: 06/05/24 Subjective: feeling better today Breathing more comfortably on room air at rest. Off oxygen since yesterday doesn't feel as short of breath with activity still has leg swelling but feels it is improving afebrile ROS: 10 point ROS as noted above, otherwise negative Physical Exam: GEN: Alert, oriented, NAD HEENT: Normal conjunctiva, sclera anicteric CV: Sinus tachycardia with HR in 100-110s, 1-2+ Bilateral lower extremity edema Pulm: Nonlabored respirations on room air, Mild bibasilar rales ABD: Soft, nontender, nondistended Neuro: Normal speech, normal affect vitals reviewed Problem List: Acute hypoxic and hypercapnic respiratory failure secondary to acute on chronic systolic CHF (HFrEF 25-30%) / Bronchopneumonia History of non-Hodgkin's lymphoma Acute hypoxic and hypercapnic respiratory failure secondary to acute on chronic systolic CHF (HFrEF 25-30%) / Bronchopneumonia Presents with dyspnea on exertion, lower extremity edema, intermittent cough for ~1-2 weeks. Denies fever/chills/chest pain. Seen at [place] [facility] on May 24. Had CT chest at the time reportedly with findings demonstrating bilateral bronchopneumonia with pleural effusions. Was given prescription for Levaquin, decadron, symbicort but continued with SOB with minimal improvement so he came here. Echo (06/03): 25-30% EF, severe global hypokinesis, left atrial enlargement, mod- severe MR, mild TR CTA chest (06/03): severe pulm edema with mod right and small left pleural effusion. no PE. mod-severe cardiomegaly CXR (06/04): improving pulm edema with small right pleural effusion Responded well to lasix. Held overnight d/t low BP. resumed IV lasix 40 mg BID this morning. dc antibiotics, no evidence of infxn Off oxygen since 06/04 pm. Cardiology and pulmonology consulted most likelty chf secondary to chemo - last completed ~april 2023 History of non-Hodgkin's lymphoma status post chemotherapy completed ~april 2023. Follow's Dr. Zavala as outpatient Dr. Zavala consulted Daily labs VTE: Lovenox Code: Full Dispo: Home , ~1-2 days Pending cardiac recs
[2024-06-05] MEDS: FUROSEMIDE 40 MG/4 ML VIAL IV SCH (08:01)
--- NOTE | 2024-06-05 11:44 | P.CNS ---
Date of Consult: 06/05/24 Chief Complaint: Shortness of breath, palpitation History of Present Illness: Patient with PMH of NHL s/p chemotherapy, presented with worsening PRATHER, BLE, denies any other cardiac symptoms. Allergies No Known Allergies Allergy (Verified 06/04/24 00:07) Home Medications: NK [No Home Meds] 06/04/24 - Past Medical/Surgical History Diabetic: No -: Non hodgkins lymphoma - Family History Father Medical History: Heart disease, Hypertension Sister Medical History: Lung disease Notes: asthma - Social History Alcohol use: Yes CD- Drugs: No Caffeine use: Yes Place of Residence: Home Review of Systems 10-point ROS is otherwise unremarkable Physical Examination Temp Pulse Resp BP Pulse Ox 97.6 F 123 H 23 H 97/64 98 06/05/24 07:00 06/05/24 09:00 06/05/24 09:00 06/05/24 09:00 06/05/24 09:00 General: Alert, In no apparent distress HEENT: Atraumatic, PERRLA, Mucous membr. moist/pink, EOMI, Sclerae nonicteric Neck: Supple, 2+ carotid pulse no bruit, No LAD, Without JVD or thyroid abnor mality Respiratory: Clear to auscultation bilaterally, Normal air movement Cardiovascular: Regular rate/rhythm, Normal S1 S2, Edema, Diastolic murmur Gastrointestinal: Normal bowel sounds, No tenderness Musculoskeletal: No tenderness Integumentary: No rashes Neurological: Normal gait, Normal speech, Normal tone, Normal affect Lymphatics: No axilla or inguinal lymphadenopathy - Problems (1) Acute on chronic combined systolic and diastolic heart failure Current Visit: Yes Status: Acute Plan: Continue IV diuresis with Lasix 40 mg IV BID, Continue to monitor input and output and correct electrolytes plan is to start Coreg 3.125 mg po BID and Lisinopril 2.5 mg daily once more euovolemic. (2) Mitral regurgitation Current Visit: Yes Status: Acute Plan: moderate to severe on echo, will need better assessment once volume status is optimized.
--- NOTE | 2024-06-05 12:00 | P.CNS ---
Date of Consult: 06/05/24 Reason for Consult: Congestive heart failure Chief Complaint: Shortness of breath, palpitation History of Present Illness: Patient is 29 years of age completed chemotherapy for non-Hodgkin's lymphoma in mid March has not been able to follow-up for the past 1-1/2 weeks has been complaining of worsening lower extremity edema dyspnea on exertion and palpitation was found to be in congestive heart failure no prior history of cardiopulmonary problems patient does not smoke he is feeling a bit better severe CHF on the echocardiogram Allergies No Known Allergies Allergy (Verified 06/04/24 00:07) Home Medications: NK [No Home Meds] 06/04/24 - Past Medical/Surgical History Diabetic: No -: Non hodgkins lymphoma - Family History Father Medical History: Heart disease, Hypertension Sister Medical History: Lung disease Notes: asthma - Social History Alcohol use: Yes CD- Drugs: No Caffeine use: Yes Place of Residence: Home Review of Systems 10-point ROS is otherwise unremarkable General: Weakness Respiratory: Shortness of Breath Cardiovascular: Edema Physical Examination Temp Pulse Resp BP Pulse Ox 97.6 F 123 H 23 H 97/64 98 06/05/24 07:00 06/05/24 09:00 06/05/24 09:00 06/05/24 09:00 06/05/24 09:00 General: Alert, Oriented x3 HEENT: Atraumatic Neck: Supple Respiratory: Clear to auscultation bilaterally Cardiovascular: Regular rate/rhythm, Normal S1 S2, Edema (2+ edema) Gastrointestinal: Normal bowel sounds, Soft and benign Musculoskeletal: No clubbing Integumentary: No rashes, No breakdown - Problems (1) Congestive heart failure Current Visit: Yes Status: Acute Plan: Patient is 29 years of age is s/p chemotherapy with ABVD for non-Hodgkin's lymphoma completed in mid March admitted with congestive heart failure severe decreasing left ventricular ejection fraction in addition to lower extremity edema palpitations and dyspnea with orthopnea GERD bilateral groundglass changes again consistent with pulmonary edema in addition to bilateral pleural effusions right greater than the left is labs chemistries all reviewed patient is doing much better stable to transfer to the floor he mostly had an SVT treated with low-dose beta-blockers and MARANDA inhibitor's in addition to Lasix can DC antibiotics no evidence of infection Qualifiers: Heart failure type: systolic
[2024-06-05 12:26] LABS: Thyroid Stimulating Hormone 0.968 uIU/mL (0.358-3.740)
[2024-06-06 05:29] LABS: Anion Gap 8.7 mEq/L (5.0-15.0); Magnesium 2.3 mg/dL (1.6-2.4); Potassium 3.7 mEq/L (3.5-5.1)
[2024-06-06] MEDS: POTASSIUM CL SA 10 MEQ TAB PO ONE (06:04)
[2024-06-06 09:23] VITALS: O2SAT 97
--- NOTE | 2024-06-06 09:46 | P.PN ---
Date of Service: 06/06/24 Subjective: breathing okay on room air lower extremity edemas slowly improving still tachycardic, slightly improved in 90-100s but goes to 120s with minimal exertion no issues overnight afebrile ROS: 10 point ROS as noted above, otherwise negative Physical Exam: GEN: Alert, oriented, NAD HEENT: Normal conjunctiva, sclera anicteric CV: Sinus tachycardia with HR in 90-100s, 1-2+ Bilateral lower extremity edema Pulm: Nonlabored respirations on room air at rest, diminished bilaterally ABD: Soft, nontender, nondistended Neuro: Normal speech, normal affect vitals reviewed Problem List: Acute hypoxic and hypercapnic respiratory failure secondary to acute on chronic systolic CHF (HFrEF 25-30%) Recent Bronchopneumonia History of non-Hodgkin's lymphoma Acute hypoxic and hypercapnic respiratory failure secondary to acute on chronic systolic CHF (HFrEF 25-30%) Recent Bronchopneumonia Presents with dyspnea on exertion, lower extremity edema, intermittent cough for ~1-2 weeks. Denies fever/chills/chest pain. Seen at [facility] on May 24. Had CT chest at the time reportedly with findings demonstrating bilateral bronchopneumonia with pleural effusions. Was given prescription for Levaquin, decadron, symbicort but continued with SOB with minimal improvement so he came here. pulm consulted. antibiotics dc'd 06/05, no evidence of active infxn Echo (06/03): 25-30% EF, severe global hypokinesis, left atrial enlargement, mod- severe MR, mild TR CTA chest (06/03): severe pulm edema with mod right and small left pleural effusion. no PE. mod-severe cardiomegaly CXR (06/04): improving pulm edema with small right pleural effusion Responding well to lasix. Continue IV lasix 40 mg BID Cardiology consulted start coreg 3.125 BID , hold for SBP <90; 06/06 most likely CHF secondary to chemo - last completed ~April 2023 History of non-Hodgkin's lymphoma status post chemotherapy completed ~april 2023. Follow's Dr. Zavala as outpatient VTE: Lovenox Code: Full Dispo: Home , ~1-2 days Pending cardiac recs / further diuresis, improved rate control
--- NOTE | 2024-06-06 10:58 | P.PN ---
Subjective Date of Service: 06/06/24 Chief Complaint: Shortness of breath, palpitation Subjective: No new changes, No C/O voiced, Tolerating diet, Ambulating, Improving Review of Systems 10-point ROS is otherwise unremarkable Physical Examination - Vital Signs Temperature: 97.3 F Blood Pressure: 96/64 Pulse: 96 Respirations: 18 Pulse Ox (%): 96 - Physical Exam General: Alert, In no apparent distress HEENT: Atraumatic, PERRLA, EOMI Neck: Supple, JVD not distended Respiratory: Crackles/rales Cardiovascular: Regular rate/rhythm, Normal S1 S2, Edema Gastrointestinal: Normal bowel sounds, No tenderness Musculoskeletal: No tenderness Integumentary: No rashes Neurological: Normal speech, Normal tone, Normal affect Lymphatics: No axilla or inguinal lymphadenopathy - Studies Microbiology Data (last 24 hrs): 06/03/24 17:36 Throat Group A Streptococcus Rapid Screen - Final 06/03/24 17:36 Throat Culture & Sensitivity - Final Medications List Reviewed: Yes Assessment And Plan - Current Problems (Diagnosis) (1) Acute on chronic combined systolic and diastolic heart failure Current Visit: Yes Status: Acute Plan: Continue IV diuresis with Lasix 40 mg IV BID, METOLAZONE 2.5 MG PO X1 Continue to monitor input and output and correct electrolytes start Coreg 3.125 mg po BID (2) Mitral regurgitation Current Visit: Yes Status: Acute Plan: moderate to severe on echo, will need better assessment once volume status is optimized.
[2024-06-06] MEDS: carvediloL 3.125 MG TAB PO ONE (12:00)
--- NOTE | 2024-06-06 12:25 | P.PN ---
Subjective Date of Service: 06/06/24 Chief Complaint: Congestive heart failure Subjective: Improving (Patient is improving doing better sleeping well no orthopnea still has lower extremity edema complaining of some leg cramp) Review of Systems General: Weakness Respiratory: Shortness of Breath Physical Examination - Vital Signs Temperature: 97.3 F Blood Pressure: 96/64 Pulse: 96 Respirations: 18 Pulse Ox (%): 96 - Physical Exam General: Alert, Oriented x3 Respiratory: Clear to auscultation bilaterally Cardiovascular: Regular rate/rhythm, Normal S1 S2, Edema (2+ edema) - Studies Microbiology Data (last 24 hrs): 06/03/24 17:36 Throat Group A Streptococcus Rapid Screen - Final 06/03/24 17:36 Throat Culture & Sensitivity - Final Medications List Reviewed: Yes Assessment And Plan - Current Problems (Diagnosis) (1) Congestive heart failure Current Visit: Yes Status: Acute Plan: Patient has congestive heart failure is doing better complaining of leg cramps reduce Lasix to 40 mg a day add low-dose spironolactone and increase as tolerated patient has relative hypokalemia CBC is unremarkable Qualifiers: Heart failure type: systolic
[2024-06-06] MEDS: SPIRONOLACTONE 25 MG TABLET PO SCH (15:25)
[2024-06-06] MEDS: METOLAZONE 2.5 MG TABLET PO ONE (15:44)
[2024-06-06] MEDS ORDERED: carvediloL 3.125 MG TAB PO SCH (18:00)
[2024-06-06] MEDS: carvediloL 3.125 MG TAB PO SCH (18:49)
[2024-06-07 00:36] VITALS: TEMP 97.1
[2024-06-07 04:30] VITALS: BMI 41.4
[2024-06-07 05:20] LABS: Anion Gap 5.7 mEq/L (5.0-15.0); Magnesium 2.1 mg/dL (1.6-2.4); Potassium 3.7 mEq/L (3.5-5.1)
[2024-06-07] MEDS: POTASSIUM CL SA 10 MEQ TAB PO ONE (06:19)
[2024-06-07 06:35] VITALS: BP 93/64
--- NOTE | 2024-06-07 07:46 | P.DS ---
Admission Date: 06/03/24 Discharge Date: 06/07/24 Disposition: ROUTINE DISCHARGE Discharge Condition: GOOD Reason for Admission: Congestive heart failure Consultations: Cardiology - Dr. Hughes Pulmonology - Dr. Resendiz Oncology - Dr. Zavala Brief History of Present Illness: 29yo M, PMH: non-Hodgkin's lymphoma not on chemotherapy before Followed by Dr. Zavala Patient presented with shortness of breath, lower extremity edema, and rapid heart rate. He was been doing okay but for the last 1 week he was having shortness of breath and palpitation and fatigue which has been progressively worsening. He developed dyspnea on exertion even with minimal exertions he has been dyspneic. But now he developed dyspnea dyspnea even at rest. Denies any chest pain. No fever or chills. No nausea vomiting or diarrhea. No sick contacts. No history of any trauma. Patient was assessed in the ER and had a CT PE protocol which was negative for any acute changes or PE but showing bronchopneumonia with pleural effusions and is admitted for further management Hospital Course: Problem List: Acute hypoxic and hypercapnic respiratory failure secondary to acute on chronic systolic CHF (HFrEF 25-30%) Recent Bronchopneumonia History of non-Hodgkin's lymphoma Physician discharge instructions: Patient presents with worsening dyspnea on exertion, lower extremity edema, intermittent cough for ~1-2 weeks, secondary to acute on chronic combined systolic & diastolic CHF exacerbation. CTA chest noted severe pulmonary edema with bilateral pleural effusions R > L, moderate-severe cardiomegaly. No pulmonary embolus Echo with 25-30% EF, severe global hypokinesis, left atrial enlargement, mod- severe mitral regurgitation, mild tricuspid regurgitation. [place] to be secondary to chemo. Suspect CHF secondary to chemo as patient has history of non-Hodgkin's lymphoma and completed chemotherapy ~april 2023 and on further review had ~45%EF on echo back in 2021. Cardiology and pulmonology were consulted. Patient responded well to diuresis with IV lasix and had improvement of his symptoms. Patient was feeling better, breathing more comfortably on room air, lower extremity edema improving, and was deemed stable for discharge. Recommend follow up with Cardiology, and repeat echocardiogram in the near future to re-assess once euvolemic. He was started on empiric antibiotics in the ED as a precaution given concern for infection / recent bronchopneumonia ~1-2 weeks ago. Patient remained afebrile throughout hospitalization. CTA chest / chest xray were negative for infiltrate. No evidence of infection. No further antibiotics warranted. Medications: Lasix 40mg daily Spironolactone 12.5mg daily carvedilol 3.125 mg twice daily Follow up: PCP 3-5 days Cardiology in 2-4 weeks Please call to schedule / confirm appointments Physical Exam: GEN: Alert, oriented, NAD HEENT: Normal conjunctiva, sclera anicteric CV: Normal rhythm, trace Bilateral lower extremity edema Pulm: Nonlabored respirations on room air at rest, clear bilaterally ABD: Soft, nontender, nondistended Neuro: Normal speech, normal affect Vital Signs/Physical Exam: Temp Pulse Resp BP Pulse Ox 97.1 F 114 H 22 H 93/64 90 L 06/07/24 04:00 06/07/24 06:20 06/07/24 04:00 06/07/24 06:20 06/07/24 04:00 Laboratory Data at Discharge: WBC 10.60 thou/uL (4.3-10.9) 06/05/24 04:20 Hgb 13.5 g/dL (13.6-17.9) L 06/05/24 04:20 Hct 40.0 % (39.6-49.0) 06/05/24 04:20 Plt Count 252 thou/uL (152-406) 06/05/24 04:20 PT 10.9 SECONDS (9.4-12.5) 06/03/24 17:40 INR 0.97 06/03/24 17:40 APTT 28.3 SECONDS (24.3-36.9) 06/03/24 17:40 Sodium 136 mEq/L (136-145) 06/07/24 04:37 Potassium 3.7 mEq/L (3.5-5.1) 06/07/24 04:37 BUN 18 mg/dL (7-18) 06/07/24 04:37 Creatinine 0.91 mg/dL (0.70-1.30) 06/07/24 04:37 Glucose 101 mg/dL (74-106) 06/07/24 04:37 Phosphorus 4.3 mg/dL (2.5-4.9) 06/05/24 04:20 Magnesium 2.1 mg/dL (1.6-2.4) 06/07/24 04:37 Total Bilirubin 0.9 mg/dL (0.2-1.0) 06/04/24 04:45 AST 34 U/L (15-37) 06/04/24 04:45 ALT 116 U/L (16-61) H 06/04/24 04:45 Alkaline Phosphatase 64 U/L (45-117) 06/04/24 04:45 Home Medications: Furosemide 40 mg PO DAILY 30 Days #30 tab 06/07/24 Spironolactone [Aldactone] 12.5 mg PO DAILY 60 Days #30 tab 06/07/24 carvediloL [Coreg*] 3.125 mg PO BID 30 Days #60 tab 06/07/24 New Medications: Spironolactone [Aldactone] 12.5 mg PO DAILY 60 Days #30 tab carvediloL [Coreg*] 3.125 mg PO BID 30 Days #60 tab Furosemide 40 mg PO DAILY 30 Days #30 tab Physician Discharge Instructions: Physician discharge instructions: Patient presents with worsening dyspnea on exertion, lower extremity edema, intermittent cough for ~1-2 weeks, secondary to acute on chronic combined systolic & diastolic CHF exacerbation. CTA chest noted severe pulmonary edema with bilateral pleural effusions R > L, moderate-severe cardiomegaly. No pulmonary embolus Echo with 25-30% EF, severe global hypokinesis, left atrial enlargement, mod- severe mitral regurgitation, mild tricuspid regurgitation. [place] to be secondary to chemo. Suspect CHF secondary to chemo as patient has history of non-Hodgkin's lymphoma and completed chemotherapy ~april 2023 and on further review had ~45%EF on echo back in 2021. Cardiology and pulmonology were consulted. Patient responded well to diuresis with IV lasix and had improvement of his symptoms. Patient was feeling better, breathing more comfortably on room air, lower extremity edema improving, and was deemed stable for discharge. Recommend follow up with Cardiology, and repeat echocardiogram in the near future to re-assess once euvolemic. He was started on empiric antibiotics in the ED as a precaution given concern for infection / recent bronchopneumonia ~1-2 weeks ago. Patient remained afebrile throughout hospitalization. CTA chest / chest xray were negative for infiltrate. No evidence of infection. No further antibiotics warranted. Medications: Lasix 40mg daily Spironolactone 12.5mg daily carvedilol 3.125 mg twice daily Follow up: PCP 3-5 days Cardiology in 2-4 weeks Please call to schedule / confirm appointments Followup: Surendra Haro MD [Primary Care Provider] - Time spent managing pt's care (in minutes): 45
[2024-06-07] MEDS ORDERED: FUROSEMIDE 40 MG/4 ML VIAL IV SCH (09:00)
== END 2024-06-07 09:25 | disposition home or self-care (01) | DRG 291 ==
LOC: ER 16:56 → 3RD-ICU 19:20
PROVIDERS: ADMIT Family Medicine; ATTEND Hospitalist
PROC: 4A033R1 Measurement of Arterial Saturation, Peripheral, Percutaneous Approach (ICD-10-PCS; principal; 2024-06-03)
DX: I50.43 Acute on chronic combined systolic (congestive) and diastolic (congestive) heart failure (principal); J18.0 Bronchopneumonia, unspecified organism; J96.02 Acute respiratory failure with hypercapnia; J96.01 Acute respiratory failure with hypoxia; Z68.41 Body mass index [BMI] 40.0-44.9, adult; E66.9 Obesity, unspecified; I34.0 Nonrheumatic mitral (valve) insufficiency; K21.9 Gastro-esophageal reflux disease without esophagitis; Z85.71 Personal history of Hodgkin lymphoma; Z11.52 Encounter for screening for COVID-19
CPT/HCPCS: 36415; 36600; 71045; 71275; 80048; 80053; 81003; 82805; 83605; 83735; 83880; 84100; 84132; 84439; 84443; 84484; 85025; 85610; 85730; 87040; 87070; 87081; 87804; 87811; 93005; 93306; 94760; 96374; 99285; J0692; J0696; J1650; J1940; J7030; J7050; Q9967

== ENCOUNTER 2024-07-30 12:20 | Inpatient (IN) | payer OTHER ==
--- NOTE | 2024-07-30 13:43 | RAD REPORT ---
EXAM DESCRIPTION: USExtrem Venous W Compress Bil07/30/2024 1:33 pm CLINICAL HISTORY: Leg swelling COMPARISON: none FINDINGS: The common femoral, superficial femoral, greater saphenous, popliteal and posterior tibial veins bilaterally are compressible and demonstrate augmentation. Doppler demonstrates good flow. Grayscale, color and spectral analysis performed on all vessels IMPRESSION: No evidence of deep venous thrombosis involving either lower extremity.
[2024-07-30 14:10] LABS: Absolute Basophils 0.1 K/uL (0-0.5); Absolute Eosinophils 0.2 K/uL (0-0.5); Absolute Lymphocytes (CBC) 2.3 K/uL (0.7-4.9); Absolute Monocytes 0.7 K/uL (0.1-1.3); Absolute Neutrophil 5.1 K/uL (1.8-8.0); Basophils % 0.9 % (0-1.3); Eosinophils % 1.9 % (0-4.4); Hemoglobin 12.9 g/dL (13.6-17.9); Lymphocytes % 27.6 % (15.3-44.8); MCV 87.8 fL (80-100); MPV 8.5 fL (7.6-11.3); Neutrophils % 61.6 % (41.7-73.7); Platelets 330 thou/uL (152-406); RBC Red Blood Cell Count 4.44 M/uL (4.33-5.43); Red Cell Distribution Width 14.9 % (12.1-15.2)
[2024-07-30 14:11] LABS: Specific Gravity 1.006 (1.005-1.030); Sqamous Epithelial None Seen /HPF (None Seen); Urine Bacteria <20 /HPF (<20); Urine Bilirubin NEGATIVE (Negative); Urine Blood Negative (Negative); Urine Clarity Clear (Clear); Urine Color Light-Yellow (Yellow); Urine Culture Reflex Order NOT NEEDED; Urine Glucose NEGATIVE (Negative); Urine Ketones NEGATIVE (Negative); Urine Microscopic Reflex YN ORDER UMIC; Urine Mucus Slight /HPF (None Seen); Urine Nitrite NEGATIVE (Negative); Urine Protein TRACE (Negative); Urine RBC None Seen /HPF (None Seen); Urine Urobilinogen Normal (Normal); Urine WBC None Seen /HPF (<5); Urine pH 5.5 (5.0-7.0)
[2024-07-30] MEDS ORDERED: FUROSEMIDE 20 MG/ 2ML VIAL ONE (14:16)
[2024-07-30 14:20] LABS: Protime INR 1.35
[2024-07-30 14:28] LABS: Albumin 3.3 g/dL (3.4-5.0); Albumin/Globulin Ratio 1.2 (1.1-1.8); Anion Gap 13.7 mEq/L (5.0-15.0); Bilirubin Direct 0.8 mg/dL (0-0.2); Bilirubin Indirect, Calculated 1.3 mg/dL (0.2-0.8); Bilirubin Total 2.1 mg/dL (0.2-1.0); Globulin 2.8 g/dL (2.3-3.5); Magnesium 1.8 mg/dL (1.6-2.4); Potassium 3.7 mEq/L (3.5-5.1); Protein, Total 6.1 g/dL (6.4-8.2); Troponin High Sensitivity 26.5 pg/mL (<58.9)
--- NOTE | 2024-07-30 14:35 | RAD REPORT ---
EXAM DESCRIPTION: Sveta Single View07/30/2024 2:10 pm CLINICAL HISTORY: Shortness of breath COMPARISON: May 2024 FINDINGS: Mild bilateral pulmonary opacities Cardiomegaly Small to moderate right small left pleural effusions with right basilar atelectasis IMPRESSION: CHF
[2024-07-30] MEDS ORDERED: CLINDAMYCIN 900MG/D5W 900 MG/50 ML IVPB IV ONE (14:47)
--- NOTE | 2024-07-30 14:52 | ER ---
Nurse's Notes [facility] Name: Arnel Sharpe Age: 29 yrs Sex: Male : 1995 Arrival Date: 07/30/2024 Time: 12:20 Bed 7 Private MD: Diagnosis: Unspecified combined systolic (congestive) and diastolic (congestive) heart failure;Cellulitis of left lower limb Presentation: 07/30 12:29 Chief complaint: Patient states: Bilateral leg swelling, shortness of breath and cm10 elevated heart rate onset tuesday. Coronavirus screen: Client denies travel out of the [place] in the last 14 days. At this time, the client does not indicate any symptoms associated with coronavirus-19. Ebola Screen: Patient denies travel to an Ebola-affected area in the 21 days before illness onset. No symptoms or risks identified at this time. Initial Sepsis Screen: Does the patient meet any 2 criteria? HR > 90 bpm. Does the patient have a suspected source of infection? No. Patient's initial sepsis screen is negative. Risk Assessment: Do you want to hurt yourself or someone else? Patient reports no desire to harm self or others. Onset of symptoms was July 30, 2024. 12:29 Method Of Arrival: Ambulatory cm10 12:29 Acuity: EEDR 2 cm10 Triage Assessment: 12:31 General: Appears in no apparent distress. uncomfortable, Behavior is calm, cooperative. cm10 Neuro: No deficits noted. Level of Consciousness is awake, alert, obeys commands, Oriented to person, place, time, situation, Appropriate for age. Historical: - Allergies: 12:31 No Known Allergies; cm10 - PMHx: 12:31 LYMPHOMA; cm10 - PSHx: 12:31 None; cm10 - Immunization history:: Adult Immunizations up to date. - Infectious Disease History:: Denies. - Social history:: Smoking status: Patient denies any tobacco usage or history of. Screenin:50 [facility] ED Fall Risk Assessment (Adult) History of falling in the last 3 months, dd2 including since admission No falls in past 3 months (0 pts) Confusion or Disorientation No (0 pts) Intoxicated or Sedated No (0 pts) Impaired Gait No (0 pts) Mobility Assist Device Used No (0 pt) Altered Elimination No (0 pt) Score/Fall Risk Level 0 - 2 = Low Risk Oriented to surroundings, Maintained a safe environment, Hourly rounding (assess needs \T\ fall precautionary measures) done. Abuse screen: Denies threats or abuse. Nutritional screening: No deficits noted. Tuberculosis screening: No symptoms or risk factors identified. Assessment: 12:50 General: Appears uncomfortable, Behavior is calm, cooperative, appropriate for age. dd2 Pain: Denies pain. Neuro: No deficits noted. Level of Consciousness is awake, alert, obeys commands, Oriented to person, place, time, situation. Cardiovascular: Reports shortness of breath, BLE swelling tight, weeping edema to RLE and tight edema to LLE. Rhythm is sinus tachycardia. Respiratory: Reports shortness of breath at rest on exertion Airway is patent Respiratory effort is even, unlabored, Respiratory pattern is regular, symmetrical, Breath sounds are clear bilaterally. the patient has mild shortness of breath. GI: No signs and/or symptoms were reported involving the gastrointestinal system. Abdomen is round non-distended. : No signs and/or symptoms were reported regarding the genitourinary system. Urine is clear. EENT: No deficits noted. No signs and/or symptoms were reported regarding the EENT system. Derm: Skin is weeping to RLE. Derm: Skin is pale. Musculoskeletal: No deficits noted. No signs and/or symptoms reported regarding the musculoskeletal system. 14:10 Reassessment: Patient and/or family updated on plan of care and expected duration. Pain rs5 level reassessed. Patient is alert, oriented x 3, equal unlabored respirations, skin warm/dry/pink. Patient states feeling better. Patient states symptoms have improved. 15:15 Reassessment: No changes from previously documented assessment. rs5 16:22 Reassessment: Patient and/or family updated on plan of care and expected duration. Pain rs5 level reassessed. Patient is alert, oriented x 3, equal unlabored respirations, skin warm/dry/pink. 17:30 Reassessment: No changes from previously documented assessment. rs5 18:05 Reassessment: Patient and/or family updated on plan of care and expected duration. Pain rs5 level reassessed. Patient is alert, oriented x 3, equal unlabored respirations, skin warm/dry/pink. Vital Signs: 12:29 BP 117 / 78; Pulse 116; Resp 19; Temp 97.3(IR); Pulse Ox 99% on R/A; Weight 139.25 kg; cm10 Height 5 ft. 11 in. ; Pain 7/10; 12:46 BP 109 / 46; Pulse 126; Resp 19; Pulse Ox 98% ; dd2 14:02 BP 104 / 84; Pulse 107; Resp 19; Temp 97.9; Pulse Ox 93% 2 lpm ; dd2 18:05 BP 131 / 82; Pulse 91; Resp 17; Pulse Ox 98% on R/A; rs5 12:29 Body Mass Index 42.82 (139.25 kg, 180.34 cm) cm10 12:29 Pain Scale: Adult cm10 ED Course: 12:24 Patient arrived in ED. im 12:27 Edi Cordero MD is Attending Physician. rt 12:27 Ravi Harrington PA is PHCP. cp 12:31 Triage completed. cm10 12:31 Arm band placed on Patient placed in an exam room, on a stretcher. cm10 12:32 Edi Cordero MD is Attending Physician. cp 12:34 HUGH OLVERA, ISREAL is Primary Nurse. dd2 12:50 Patient has correct armband on for positive identification. Bed in low position. Call dd2 light in reach. Side rails up X 1. Provided Education on: CALL LIGHT, PROCEDURES, LABS. Client placed on continuous cardiac and pulse oximetry monitoring. NIBP monitoring applied. environmental monitoring technician on. Door closed. Pillow given. Verbal reassurance given. 12:50 No provider procedures requiring assistance completed. dd2 13:31 EKG done, by ED staff, reviewed by Ravi STEVENS. dd2 13:35 US Extremity Venous W Compression Nilesh In Process Unspecified. EDMS 13:58 Initial lab(s) drawn, by ED staff, sent to lab. First set of blood cultures drawn by ED dd2 staff, Urine collected: clean catch specimen, clear, X-ray(s) taken. 14:00 Inserted saline lock: 20 gauge in right antecubital area, using aseptic technique. dd2 Blood collected. Flushed with 10 mL NS. 14:12 XRAY Chest (1 view) In Process Unspecified. EDMS 14:50 Vasiliy Au MD is Hospitalizing Provider. cp 18:44 Patient admitted, IV remains in place. ko1 Administered Medications: 14:20 Drug: Furosemide IVP 20 mg IVP once; give over 2 minutes Route: IVP; Site: right dd2 antecubital; 14:35 Follow up: Response: No adverse reaction dd2 15:05 Drug: Clindamycin IVPB 900 mg IVPB once over 30 mins; (mix in 50 mL) Route: IVPB; dd2 Infused Over: 30 mins; Site: right antecubital; 15:20 Follow up: Response: No adverse reaction dd2 15:35 Follow up: Response: No adverse reaction; IV Status: Completed infusion; IV Intake: [id number] Medication: 12:50 VIS not applicable for this client. dd2 Intake: 15:35 IV: 50ml; Total: 50ml. dd2 Outcome: 14:51 Decision to Hospitalize by Provider. cp 18:44 Admitted to Med/surg accompanied by tech, via wheelchair, room 212, with chart, ko1 18:44 Condition: improved 18:44 Instructed on the need for admit, 18:44 Patient left the ED. ko1 Signatures: Dispatcher [employer] EDMS Ravi Harrington PA PA cp Brunilda Landeros, RN RN ko1 Edi Cordero MD MD rt Nadeem Menezes RN RN rs5 Kathryn Hinojosa Clarissa, RN RN cm10 HUGH OLVERA RN RN dd2
--- NOTE | 2024-07-30 14:52 | EDPHYS ---
Physician Documentation [facility] Name: Arnel Sharpe Age: 29 yrs Sex: Male : 1995 Arrival Date: 07/30/2024 Time: 12:20 Bed 7 Private MD: ED Physician Edi Cordero HPI: 07/30 12:55 This 29 yrs old Male presents to ER via Ambulatory with complaints of Shortness Of cp Breath, Leg Swelling. 12:55 The patient has shortness of breath at rest. Onset: The symptoms/episode began/occurred cp gradually. Duration: The symptoms are continuous, and are steadily getting worse. Associated signs and symptoms: Pertinent positives: swelling of legs, Pertinent negatives: chest pain, diaphoresis, fever, vomiting. Historical: - Allergies: 12:31 No Known Allergies; cm10 - PMHx: 12:31 LYMPHOMA; cm10 - PSHx: 12:31 None; cm10 - Immunization history:: Adult Immunizations up to date. - Infectious Disease History:: Denies. - Social history:: Smoking status: Patient denies any tobacco usage or history of. ROS: 13:00 Constitutional: Negative for body aches, chills, fever, poor PO intake, cp 13:00 Eyes: Negative for injury, pain, redness, and discharge, cp 13:00 ENT: Negative for drainage from ear(s), ear pain, sore throat, difficulty swallowing, difficulty handling secretions, 13:00 Cardiovascular: Positive for edema, Negative for chest pain, 13:00 Respiratory: Positive for shortness of breath, at rest. orthopnea, 13:00 Abdomen/GI: Negative for abdominal pain, vomiting, diarrhea, constipation, 13:00 Neuro: Negative for altered mental status, dizziness, weakness, 13:00 All other systems are negative, Exam: 13:05 Constitutional: The patient appears in no acute distress, alert, awake, cp non-diaphoretic, non-toxic, well developed, well nourished, obese, uncomfortable, 13:05 Head/Face: Normocephalic, atraumatic. cp 13:05 Eyes: Periorbital structures: appear normal, Conjunctiva: normal, no exudate, no injection, Sclera: no appreciated abnormality, Lids and lashes: appear normal, bilaterally, 13:05 ENT: External ear(s): are unremarkable, Nose: is normal, Mouth: Lips: moist, Oral mucosa: pink and intact, moist, Posterior pharynx: Airway: no evidence of obstruction, patent, 13:05 Neck: ROM/movement: is normal, is supple, without pain, no range of motions limitations, 13:05 Chest/axilla: Inspection: normal, 13:05 Cardiovascular: Rate: tachycardic, Rhythm: regular, Edema: pedal edema, that is moderate, extending proximal to upper legs, JVD: is not appreciated, 13:05 Respiratory: the patient does not display signs of respiratory distress, Respirations: labored breathing, that is mild, Breath sounds: decreased breath sounds, that are moderate, are heard in the left posterior lower lobe, right posterior middle lobe and right posterior lower lobe, stridor, is not appreciated, wheezing: is not appreciated, 13:05 Abdomen/GI: Inspection: obese Bowel sounds: active, all quadrants, Palpation: abdomen is soft and non-tender, in all quadrants, 13:05 Skin: mild erythema of left leg. 13:05 Neuro: Orientation: to person, place \T\ time. Mentation: is normal, Motor: moves all fours, strength is normal, Sensation: is normal, Vital Signs: 12:29 BP 117 / 78; Pulse 116; Resp 19; Temp 97.3(IR); Pulse Ox 99% on R/A; Weight 139.25 kg; cm10 Height 5 ft. 11 in. ; Pain 7/10; 12:46 BP 109 / 46; Pulse 126; Resp 19; Pulse Ox 98% ; dd2 14:02 BP 104 / 84; Pulse 107; Resp 19; Temp 97.9; Pulse Ox 93% 2 lpm ; dd2 18:05 BP 131 / 82; Pulse 91; Resp 17; Pulse Ox 98% on R/A; rs5 12:29 Body Mass Index 42.82 (139.25 kg, 180.34 cm) cm10 12:29 Pain Scale: Adult cm10 MDM: 12:32 Patient medically screened. cp 13:00 Differential diagnosis: CHF exacerbation, pneumonia, pulmonary edema, Pulmonary cp Embolism Sepsis Unstable Angina. 14:55 Data reviewed: vital signs, nurses notes, lab test result(s), EKG, radiologic studies, cp plain films, ultrasound, and as a result, I will admit patient. 14:55 Antibiotic administration: Consideration of Admission/Observation Patient was cp admitted/placed on observation. I considered the following discharge prescriptions or medication management in the emergency department Medications were administered in the Emergency Department. See JAN. 07/30 12:51 Order name: CBC with Diff; Complete Time: 14:30 07/30 14:30 Interpretation: Normal except: HGB 12.9; HCT 39.0. 07/30 12:51 Order name: LFT's; Complete Time: 14:30 07/30 12:51 Order name: Magnesium; Complete Time: 14:30 07/30 12:51 Order name: NT PRO-BNP; Complete Time: 14:30 07/30 14:30 Interpretation: Abnormal: NT PRO-BNP 27823. 07/30 12:51 Order name: PT-INR; Complete Time: 14:30 07/30 12:51 Order name: Troponin HS; Complete Time: 14:30 07/30 12:51 Order name: Blood Culture Adult (2) 07/30 12:51 Order name: CMP; Complete Time: 14:30 07/30 14:31 Interpretation: Normal except: NA 135; BUN 21; GFR 86; BILIT 2.1; TP 6.1; ALB 3.3. 07/30 12:51 Order name: Lactate w/ 2H reflex if indic.; Complete Time: 14:30 07/30 12:51 Order name: Ptt, Activated; Complete Time: 14:30 07/30 12:51 Order name: Urinalysis w/ reflexes; Complete Time: 14:30 07/30 13:09 Order name: Glucose, Ancillary Testing; Complete Time: 14:30 [facility] 07/30 16:43 Order name: Thyroid Stimulating Hormone EDCO 07/30 16:43 Order name: CBC with Automated Diff EDCO 07/30 16:43 Order name: CBC with Automated Diff EDCO 07/30 16:43 Order name: Comprehensive Metabolic Panel EDCO 07/30 16:43 Order name: Comprehensive Metabolic Panel EDCO 07/30 16:43 Order name: Lipid Profile EDCO 07/30 16:43 Order name: Lipid Profile EDCO 07/30 16:43 Order name: Magnesium EDMS 07/30 16:43 Order name: Magnesium EDCO 07/30 16:43 Order name: Phosphorus EDMS 07/30 16:43 Order name: Phosphorus EDMS 07/30 12:51 Order name: XRAY Chest (1 view); Complete Time: 14:36 cp 07/30 12:51 Order name: US Extremity Venous W Compression Nilesh; Complete Time: 14:30 cp 07/30 12:51 Order name: EKG; Complete Time: 12:52 cp 07/30 16:43 Order name: CONS Physician Consult EDCO 07/30 12:51 Order name: Cardiac monitoring; Complete Time: 13:30 cp 07/30 12:51 Order name: EKG - Nurse/Tech; Complete Time: 13:30 cp 07/30 12:51 Order name: IV Saline Lock; Complete Time: 14:08 cp 07/30 12:51 Order name: Labs collected and sent; Complete Time: 14:08 cp 07/30 12:51 Order name: O2 Per Protocol; Complete Time: 13:13 cp 07/30 12:51 Order name: O2 Sat Monitoring; Complete Time: 13:13 cp 07/30 12:51 Order name: Accucheck; Complete Time: 13:13 cp 07/30 12:51 Order name: IV Saline Lock - Large Bore; Complete Time: 14:07 cp 07/30 12:51 Order name: Vital Signs; Complete Time: 14:07 cp Administered Medications: 14:20 Drug: Furosemide IVP 20 mg IVP once; give over 2 minutes Route: IVP; Site: right dd2 antecubital; 14:35 Follow up: Response: No adverse reaction dd2 15:05 Drug: Clindamycin IVPB 900 mg IVPB once over 30 mins; (mix in 50 mL) Route: IVPB; dd2 Infused Over: 30 mins; Site: right antecubital; 15:20 Follow up: Response: No adverse reaction dd2 15:35 Follow up: Response: No adverse reaction; IV Status: Completed infusion; IV Intake: [id number] Disposition Summary: 07/30/24 14:51 Hospitalization Ordered Notes: Hospitalization Status: Inpatient Admission cp Provider: Vasiliy Au cp Condition: Stable cp Problem: an acute exacerbation cp Symptoms: have improved cp Bed/Room Type: Standard cp Location: Telemetry/MedSurg (Inpatient)(07/30/24 17:40) bd Room Assignment: [facility](07/30/24 17:40) bd Diagnosis - Unspecified combined systolic (congestive) and diastolic (congestive) heart failure cp - Cellulitis of left lower limb cp Forms: - Medication Reconciliation Form cp - SBAR form cp - Leadership Thank You Letter cp Addendum: 08/02/2024 09:03 Co-signature as Attending Physician, Edi Cordero MD I reviewed the patient's care r t provided by the Advanced Practice Provider and agree with the diagnosis and treatment plan. Signatures: Dispatcher [employer] EDMS EstherTrisha crump Ravi Carrizales PA PA cp Edi Cordero MD MD rt Joleen Gongora RN RN cm10 HUGH OLVERA RN RN dd2 Corrections: (The following items were deleted from the chart) 07/30 12:52 12:52 BASIC METABOLIC PANEL+C.LAB.BRZ ordered. EDMS EDMS 12:52 12:52 CBC+H.LAB.BRZ ordered. EDMS EDMS 12:52 12:52 HEPATIC FUNCTION+C.LAB.BRZ ordered. EDMS EDMS 12:52 12:52 MAGNESIUM+C.LAB.BRZ ordered. EDMS EDMS 12:52 12:52 PROBNP+C.LAB.BRZ ordered. EDMS EDMS 12:52 12:52 PROTIME (+INR)+COAG.LAB.BRZ ordered. EDMS EDMS 12:52 12:52 Troponin High Sensitivity+C.LAB.BRZ ordered. EDMS EDMS 12:52 12:52 BLOOD CULTURE*+BA.LAB.BRZ ordered. EDMS EDMS 12:52 12:52 COMPREHENSIVE METABOLIC PANEL+C.LAB.BRZ ordered. EDMS EDMS 12:52 12:52 LACTATE+C.LAB.BRZ ordered. EDMS EDMS 12:52 12:52 PTT, ACTIVATED+COAG.LAB.BRZ ordered. EDMS EDMS 12:52 12:52 Urinalysis+U.LAB.BRZ ordered. EDCO EDMS 15:57 14:51 Telemetry/MedSurg (Inpatient) cp bd 15:57 14:51 cp bd 17:40 15:57 [facility] ER HOLD bd bd 17:40 15:57 ERHOLD- bd bd
[2024-07-30] MEDS ORDERED: ALPRAZOLAM 0.25 MG TABLET PO PRN (16:29)
--- NOTE | 2024-07-30 16:48 | P.HP ---
Certification for Inpatient Patient admitted to: Inpatient With expected LOS: >2 Midnights <Dinorah Mckeon - Last Filed: 07/30/24 18:39> Patient History Date of Service: 07/30/24 <Vasiliy Au - Last Filed: 07/30/24 18:12> Date of Service: 07/30/24 Reason for admission: shortness of breath, edema History of Present Illness: Mr. Sharpe is a 29-year-old male with a past medical history of non-Hodgkin's lymphoma, chemotherapy induced cardiomyopathy with CHF, and a poor ejection fraction of 25 to 30%. After his discharge from the hospital he was in his normal state of health until he acquired an upper respiratory infection Tuesday through Tuesday of last week. He states he has been progressively short of breath with orthopnea and dyspnea on exertion worsening since that time (roughly 5 days). He presented to the emergency department today with the above complaints with 95/74 blood pressure, 108 heart rate, 97% SpO2 on room air. He was noted to have a little erythema to bilateral left greater than right lower extremities. Ultrasound evaluation was negative for DVT bilaterally. He will be admitted for further evaluation and treatment of HFrEF and cellulitis. Lab studies show wbc 8.3, Hgb 12.9, plt 330, K 3.8, Cr 1.18, NA 135, BNP 55706. CXR: shows pulm edema. Home medications list reviewed: Yes - Past Medical/Surgical History Has patient received pneumonia vaccine in the past: No Diabetic: No -: Non hodgkins lymphoma -: Bronchopneumonia -: CHF -: Chemo induced cardiomyopathy Psychosocial/ Personal History: Lives with his mom and brother. Sees Dr. Haro. Sees Dr. Zavala. Non-Hodgkin's lymphoma diagnosed with chemotherapy [id number]. Last admitted 06/03/2024 with CHF - Family History Father -: Heart disease, Hypertension Sister -: Lung disease Notes: asthma - Social History Smoking Status: Unknown if ever smoked Alcohol use: Yes CD- Drugs: No Caffeine use: Yes Place of Residence: Home <Dinorah Mckeon - Last Filed: 07/30/24 18:39> Allergies No Known Allergies Allergy (Verified 06/04/24 00:07) Home Medications: Furosemide 40 mg PO DAILY 30 Days #30 tab 06/07/24 Spironolactone [Aldactone] 12.5 mg PO DAILY 60 Days #30 tab 06/07/24 carvediloL [Coreg*] 3.125 mg PO BID 30 Days #60 tab 06/07/24 Review of Systems 10-point ROS is otherwise unremarkable General: Weakness, Malaise Cardiovascular: Orthopnea, Paroxysmal Noc. Dyspnea, Edema, As per HPI <Dinorah Mckeon - Last Filed: 07/30/24 18:39> Physical Examination - Studies Laboratory Data (last 24 hrs) 07/30/24 07/30/24 07/30/24 13:55 13:55 13:55 WBC 8.30 Hgb 12.9 L Hct 39.0 L Plt Count 330 PT 15.0 H INR 1.35 APTT 30.0 Sodium 135 L Potassium 3.7 BUN 21 H Creatinine 1.18 Glucose 103 Magnesium 1.8 Total Bilirubin 2.1 H AST 36 ALT 60 Alkaline Phosphatase 75 <Vasiliy Au - Last Filed: 07/30/24 18:12> - Physical Exam General: Alert, Oriented x3, Cooperative, Obese HEENT: Atraumatic, Normocephalic Neck: Supple Respiratory: Crackles/rales Cardiovascular: Regular rate/rhythm, Normal S1 S2, Other (Tachycardia), Edema Capillary refill: <2 Seconds Gastrointestinal: Soft and benign Musculoskeletal: No clubbing Integumentary: Erythema (Mild to bilateral left greater than right lower extremities) Neurological: Normal speech, Normal tone, Normal affect Lymphatics: No axilla or inguinal lymphadenopathy External genitalia: Deferred Rectal: Deferred - Studies Laboratory Data (last 24 hrs) 07/30/24 07/30/24 07/30/24 13:55 13:55 13:55 WBC 8.30 Hgb 12.9 L Hct 39.0 L Plt Count 330 PT 15.0 H INR 1.35 APTT 30.0 Sodium 135 L Potassium 3.7 BUN 21 H Creatinine 1.18 Glucose 103 Magnesium 1.8 Total Bilirubin 2.1 H AST 36 ALT 60 Alkaline Phosphatase 75 <Dinorah Mckeon - Last Filed: 07/30/24 18:39> Assessment and Plan Physician Review Additional Text: Pt seen and examined. I agree with the note by the POLICY OFFICER. Pt is a 29 yo male with past medical history of Lymphoma who presents with SOB, anasarca, and leg cellulitis. The symptom started 5 days ago and progressively worsened and pt ca me to the ER for evaluation. Lab studies how wbc 8.3, Hgb 12.9, plt 330, K 3.8, Cr 1.18, NA 135, BNP 24867. CXR: shows pulm edema. At bedside, pt is in NAD. A/P: SOB/ Anasarca/ Leg edema / Pulm edema: [place] [address]. Will continue Lasix 40mg iv BID, strict I/O and daily weight. Leg cellulitis: Doppler ultrasound is unremarkable. Pt received clinda in the ER. Hx of Lymphoma: Will f/u [facility] oncologist in clinic. DVT ppx: SCD Code: full <Vasiliy Au - Last Filed: 07/30/24 18:12> - Plan Pt is a 29 yo male with past medical history of Lymphoma who presents with SOB, anasarca, and leg cellulitis. The symptom started 5 days ago and progressively worsened and pt came to the ER for evaluation. Lab studies how wbc 8.3, Hgb 12.9, plt 330, K 3.8, Cr 1.18, NA 135, BNP 28043. CXR: shows pulm edema. At bedside, pt is in NAD. A/P: Decompensated [place] ([place] [address])/anasarca/with hypotension HFrEF Leg edema/cellulitis. Lasix 40mg iv BID, strict I/O and daily weight. Last ECHO showed EF 25-30% (06/13) Consider albumin to keep pressure up for lasix (may need lasix/albumin drip) Therapeutic Lovenox Leg cellulitis: Doppler ultrasound is unremarkable. clindamycin 900mg IV q 8h Hx of Lymphoma: Will f/u [facility] oncologist in clinic. DVT ppx: SCD Code: full Discharge Plan: Home Plan to discharge in: Greater than 2 days - Advance Directives Does patient have a Living Will: No Does patient have a Durable POA for Healthcare: No <Dinorah Mckeon - Last Filed: 07/30/24 18:39>
[2024-07-30] MEDS: FUROSEMIDE 20 MG/ 2ML VIAL IV SCH (17:00)
[2024-07-30] MEDS: CLINDAMYCIN 900MG/D5W 900 MG/50 ML IVPB IV SCH (17:00)
[2024-07-30] MEDS: carvediloL 3.125 MG TAB PO SCH (18:00)
[2024-07-30] MEDS: ARFORMOTEROL TARTRATE 15 MCG/2 ML VIAL.NEB NEB SCH (20:37)
[2024-07-30] MEDS: Enoxaparin 120 MG/0.8 ML SYR SQ SCH (23:03)
[2024-07-31 06:08] LABS: Absolute Basophils 0.1 K/uL (0-0.5); Absolute Eosinophils 0.2 K/uL (0-0.5); Absolute Lymphocytes (CBC) 2.3 K/uL (0.7-4.9); Basophils % 1.5 % (0-1.3); Eosinophils % 3.1 % (0-4.4); Hematocrit 37.7 % (39.6-49.0); Lymphocytes % 30.2 % (15.3-44.8); MCV 87.5 fL (80-100); MPV 8.6 fL (7.6-11.3); Monocytes % 12.7 % (3.3-12.3); Neutrophils % 52.5 % (41.7-73.7); Platelets 280 thou/uL (152-406)
[2024-07-31 06:25] LABS: Albumin 2.9 g/dL (3.4-5.0); Albumin/Globulin Ratio 1.1 (1.1-1.8); Anion Gap 10.4 mEq/L (5.0-15.0); Bilirubin Total 1.7 mg/dL (0.2-1.0); Globulin 2.6 g/dL (2.3-3.5); Magnesium 1.8 mg/dL (1.6-2.4); Phosphorus 3.8 mg/dL (2.5-4.9); Potassium 3.4 mEq/L (3.5-5.1); Protein, Total 5.5 g/dL (6.4-8.2)
[2024-07-31] MEDS: METOLAZONE 5 MG TABLET PO SCH ×2 (08:00→12:27)
[2024-07-31] MEDS ORDERED: SPIRONOLACTONE 25 MG TABLET PO SCH (09:00)
[2024-07-31] MEDS ORDERED: FUROSEMIDE 40 MG/4 ML VIAL IV SCH (09:00)
[2024-07-31] MEDS: FUROSEMIDE 40 MG/4 ML VIAL IV SCH (10:03)
--- NOTE | 2024-07-31 12:04 | P.CNS ---
Date of Consult: 07/31/24 Chief Complaint: shortness of breath, edema History of Present Illness: Patient with PMH of HFrEF, most likely secondary to chemotherapy from lymphoma, presented with worsening SOB, lower extremities edema after he had a recent GI virus, denies chest pain, no palpitations, no syncope, has been complaint with home lasix. Allergies No Known Allergies Allergy (Verified 06/04/24 00:07) Home medications list reviewed: Yes Home Medications: Furosemide 40 mg PO DAILY 30 Days #30 tab 06/07/24 Spironolactone [Aldactone] 12.5 mg PO DAILY 60 Days #30 tab 06/07/24 carvediloL [Coreg*] 3.125 mg PO BID 30 Days #60 tab 06/07/24 - Past Medical/Surgical History Diabetic: No -: Non hodgkins lymphoma -: Bronchopneumonia -: CHF -: Chemo induced cardiomyopathy Psychosocial/ Personal History: Lives with his mom and brother. Sees Dr. Haro. Sees Dr. Zavala. Non-Hodgkin's lymphoma diagnosed with chemotherapy [id number]. Last admitted 06/03/2024 with CHF - Family History Father Medical History: Heart disease, Hypertension Sister Medical History: Lung disease Notes: asthma - Social History Alcohol use: Yes CD- Drugs: No Caffeine use: Yes Place of Residence: Home Review of Systems 10-point ROS is otherwise unremarkable Physical Examination Temp Pulse Resp BP Pulse Ox 97.6 F 105 H 24 H 102/66 95 07/31/24 08:00 07/31/24 10:03 07/31/24 08:00 07/31/24 10:03 07/31/24 08:00 General: Alert, In no apparent distress HEENT: Atraumatic, PERRLA, Mucous membr. moist/pink, EOMI, Sclerae nonicteric Neck: Supple, 2+ carotid pulse no bruit, No LAD, Without JVD or thyroid abnormality Respiratory: Clear to auscultation bilaterally, Normal air movement Cardiovascular: Regular rate/rhythm, Normal S1 S2, Edema Gastrointestinal: Normal bowel sounds, No tenderness Musculoskeletal: No tenderness Integumentary: No rashes Neurological: Normal gait, Normal speech, Normal tone, Normal affect Lymphatics: No axilla or inguinal lymphadenopathy Laboratory Data (last 24 hrs) 07/30/24 07/30/24 07/30/24 13:55 13:55 13:55 WBC 8.30 Hgb 12.9 L Hct 39.0 L Plt Count 330 PT 15.0 H INR 1.35 APTT 30.0 Sodium 135 L Potassium 3.7 BUN 21 H Creatinine 1.18 Glucose 103 Magnesium 1.8 Total Bilirubin 2.1 H AST 36 ALT 60 Alkaline Phosphatase 75 - Problems (1) Acute on chronic combined systolic and diastolic heart failure Current Visit: No Status: Acute Plan: recommend switching to Lasix drip at 15 mg/hr Continue Coreg 3.125 mg po BID Monitor and document input and output monitor and correct electrolytes. (2) Mitral regurgitation Current Visit: No Status: Acute Plan: moderate to severe on last echo, need to optimize fluid status and repeat echo after.
--- NOTE | 2024-07-31 12:09 | P.PN ---
Subjective Date of Service: 07/31/24 Chief Complaint: shortness of breath, edema Pt is resting comfortably in his room. He reported increased urine output this am. Pt is getting lasix 40mg TID and metolazone. Cardiology wants him to start lasix drip 15mg/hr. No other complaints. Review of Systems General: Unremarkable Eyes: Unremarkable ENT: Unremarkable Respiratory: Unremarkable Cardiovascular: Unremarkable Gastrointestinal: Unremarkable Genitourinary: Unremarkable Musculoskeletal: Unremarkable Integumentary: Unremarkable Neurological: Unremarkable Lymphatics: Unremarkable Physical Examination - Vital Signs Temperature: 97.6 F Blood Pressure: 102/66 Pulse: 105 Respirations: 24 Pulse Ox (%): 95 - Physical Exam General: Alert, In no apparent distress, Oriented x3 HEENT: Atraumatic, Normocephalic, PERRLA Neck: Supple, 2+ carotid pulse no bruit Respiratory: Clear to auscultation bilaterally, Normal air movement Cardiovascular: No edema, Normal pulses, Regular rate/rhythm, Edema Capillary refill: <2 Seconds Gastrointestinal: Normal bowel sounds, Soft and benign, Non-distended Musculoskeletal: No clubbing, No swelling, No contractures Integumentary: No rashes, No breakdown, No significant lesion Neurological: Normal gait, Normal speech, Normal strength at 5/5 x4 extr, Normal tone, Sensation intact Lymphatics: No axilla or inguinal lymphadenopathy - Studies Laboratory Data (last 24 hrs) 07/30/24 07/30/24 07/30/24 13:55 13:55 13:55 WBC 8.30 Hgb 12.9 L Hct 39.0 L Plt Count 330 PT 15.0 H INR 1.35 APTT 30.0 Sodium 135 L Potassium 3.7 BUN 21 H Creatinine 1.18 Glucose 103 Magnesium 1.8 Total Bilirubin 2.1 H AST 36 ALT 60 Alkaline Phosphatase 75 Assessment And Plan - Plan Acute systolic CHF exacerbation/ SOB/ Anasarca/ Leg edema / Pulm edema: [place] [address]. Will continue Lasix drip 15mg/hr, strict I/O and daily weight. Last Echo in May, showed Ef 25 - 30%. Cardiology is following. Leg cellulitis: Doppler ultrasound is unremarkable. Pt received clinda in the ER. Will continue doxycycline. Hx of Lymphoma: Will f/u [facility] oncologist in clinic. DVT ppx: SCD Code: full Dispo: Pending hospital course
[2024-07-31] MEDS: FUROSEMIDE 100 MG in NA CHLORIDE 0.9% 90 ML IV SCH (12:27)
--- NOTE | 2024-07-31 16:56 | EKG ---
Test Date: 2024-07-30 Test Time: 13:25:28 Monogram And Letter Paster: LORAINE MEASUREMENT RESULTS: Intervals: Rate: 106 MI: 180 QRSD: 98 QT: 372 QTc: 494 Sheldon: P: 50 MI: 180 QRS: 135 T: 75 INTERPRETIVE STATEMENTS: Sinus tachycardia Anterior infarct, age undetermined Abnormal ECG Compared to ECG 06/03/2024 18:29:04 Myocardial infarct finding now present Left-axis deviation no longer present ST (T wave) deviation no longer present Electronically Signed On 07-31-24 16:53:10 CDT by Leonidas Peterson
[2024-07-31] MEDS: DOXYCYCLINE 100 MG CAP PO SCH (22:16)
[2024-07-31] MEDS: ONDANSETRON 4 MG/2 ML VIAL IV PRN (23:59)
[2024-08-01] MEDS: POTASSIUM 25 MEQ EFFERV TAB PO ONE (12:15)
[2024-08-01] MEDS: MIDODRINE HCL 5 MG TABLET PO SCH (12:37)
--- NOTE | 2024-08-01 13:09 | P.PN ---
Subjective Date of Service: 08/01/24 Chief Complaint: shortness of breath, edema Subjective: No new changes, No C/O voiced, Tolerating diet, Ambulating, Improving Review of Systems 10-point ROS is otherwise unremarkable Physical Examination - Vital Signs Temperature: 98.2 F Blood Pressure: 94/58 Pulse: 90 Respirations: 18 Pulse Ox (%): 95 - Physical Exam General: Alert, In no apparent distress HEENT: Atraumatic, PERRLA, EOMI Neck: Supple, JVD not distended Respiratory: Clear to auscultation bilaterally, Normal air movement Cardiovascular: Regular rate/rhythm, Normal S1 S2, Edema Gastrointestinal: Normal bowel sounds, No tenderness Musculoskeletal: No tenderness Integumentary: No rashes Neurological: Normal speech, Normal tone, Normal affect Lymphatics: No axilla or inguinal lymphadenopathy - Studies Medications List Reviewed: Yes Assessment And Plan - Current Problems (Diagnosis) (1) Acute on chronic combined systolic and diastolic heart failure Current Visit: No Status: Acute Plan: Continue Lasix drip at 15 mg/hr Continue Coreg 3.125 mg po BID Monitor and document input and output monitor and correct electrolytes. (2) Mitral regurgitation Current Visit: No Status: Acute Plan: moderate to severe on last echo, need to optimize fluid status and repeat echo after.
--- NOTE | 2024-08-01 13:57 | P.PN ---
Subjective Date of Service: 08/01/24 Chief Complaint: shortness of breath, edema Pt is resting comfortably in his room. He reported increased urine output this am. Fluid balance is - 2100cc. Pt is getting lasix drip at 15mg/hr. Cardiology is following. No other complaints. Review of Systems General: Unremarkable Eyes: Unremarkable ENT: Unremarkable Respiratory: Unremarkable Cardiovascular: Edema Gastrointestinal: Unremarkable Genitourinary: Unremarkable Musculoskeletal: Unremarkable Integumentary: Unremarkable Neurological: Unremarkable Lymphatics: Unremarkable Physical Examination - Vital Signs Temperature: 98.2 F Blood Pressure: 94/58 Pulse: 90 Respirations: 18 Pulse Ox (%): 95 - Physical Exam General: Alert, In no apparent distress, Oriented x3 HEENT: Atraumatic, Normocephalic, PERRLA Neck: Supple, 2+ carotid pulse no bruit Respiratory: Clear to auscultation bilaterally, Normal air movement, Diminished Cardiovascular: No edema, Normal pulses, Regular rate/rhythm, Normal S1 S2 Capillary refill: <2 Seconds Gastrointestinal: Normal bowel sounds, Soft and benign, Non-distended Musculoskeletal: No clubbing, No swelling, No contractures Integumentary: No rashes, No breakdown, No significant lesion Neurological: Normal gait, Normal speech, Normal strength at 5/5 x4 extr Lymphatics: No axilla or inguinal lymphadenopathy - Studies Medications List Reviewed: Yes Assessment And Plan - Plan Acute systolic CHF exacerbation/ SOB/ Anasarca/ Leg edema / Pulm edema: [place] [address]. Will continue Lasix drip 15mg/hr, strict I/O and daily weight. Fluid balance is - 2100 cc. Last Echo in May, showed EF 25 - 30%. Cardiology is following. 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 Leg cellulitis: Doppler ultrasound is unremarkable. Pt received clinda in the ER. Will continue doxycycline. Hx of Lymphoma: Will f/u with oncologist in clinic. Morbid obesity: Pt was advised to lose weight. DVT ppx: SCD Code: full Dispo: Pending hospital course
[2024-08-01] MEDS: FUROSEMIDE 100 MG in NA CHLORIDE 0.9% 90 ML IV SCH (17:33)
[2024-08-02] MEDS: KCL 20 MEQ/100 mL IVPB 20 MEQ/100 ML BAG IV SCH ×3 (02:21→20:56)
[2024-08-02] MEDS: NA CHLORIDE 0.9% 250 ML ONE ×3 (02:22→20:49)
[2024-08-02 06:09] LABS: Absolute Basophils 0.1 K/uL (0-0.5); Absolute Eosinophils 0.3 K/uL (0-0.5); Absolute Lymphocytes (CBC) 2.8 K/uL (0.7-4.9); Absolute Monocytes 1.1 K/uL (0.1-1.3); Eosinophils % 4.1 % (0-4.4); Hematocrit 40.3 % (39.6-49.0); Hemoglobin 13.4 g/dL (13.6-17.9); Lymphocytes % 33.6 % (15.3-44.8); MCH 28.6 pg (27.0-35.0); MCHC 33.1 g/dL (32.0-36.0); MCV 86.3 fL (80-100); MPV 8.5 fL (7.6-11.3); Monocytes % 12.9 % (3.3-12.3); Neutrophils % 48.4 % (41.7-73.7); Platelets 309 thou/uL (152-406); RBC Red Blood Cell Count 4.68 M/uL (4.33-5.43); Red Cell Distribution Width 14.9 % (12.1-15.2)
[2024-08-02 06:39] LABS: Anion Gap 11.4 mEq/L (5.0-15.0)
[2024-08-02 06:43] LABS: Potassium 2.4 mEq/L (3.5-5.1)
[2024-08-02 07:52] VITALS: BMI 38.6
[2024-08-02] MEDS: FUROSEMIDE 100 MG in NA CHLORIDE 0.9% 90 ML IV SCH (08:15)
[2024-08-02] MEDS: POTASSIUM CL SA 10 MEQ TAB PO SCH (09:00)
--- NOTE | 2024-08-02 09:48 | P.PN ---
Subjective Date of Service: 08/02/24 Chief Complaint: shortness of breath, edema Subjective: Improving <TruHillary Carroll - Last Filed: 08/02/24 09:41> Date of Service: 08/02/24 <Vasiliy Au - Last Filed: 08/02/24 13:57> Physical Examination - Vital Signs Temperature: 97.5 F Blood Pressure: 110/56 Pulse: 83 Respirations: 20 Pulse Ox (%): 95 - Studies Medications List Reviewed: Yes <Hillary Ott - Last Filed: 08/02/24 09:41> Assessment And Plan - Plan Decompensated [place] [address])/anasarca/with hypotension HFrEF Leg edema/cellulitis. Lasix 40mg iv BID, strict I/O and daily weight. Last ECHO showed EF 25-30% (06/13) Consider albumin to keep pressure up for lasix (may need lasix/albumin drip) Therapeutic Lovenox Consult Cardiology - Dr. Hughes following On albumin/lasix drip and diuresing very well. Pt is feeling much better. CXR improved. Will get ECHO per Dr. Hughes 08/02/24 Fluid Weight loss 13.5kg this admission Leg cellulitis: Doppler ultrasound is unremarkable. clindamycin 900mg IV q 8h 08/02/24 lower extremities less tight, remain erythematous, denies pain Hx of Lymphoma: Will f/u [facility] oncologist in clinic Hypokalemia/hypomagnesemia 08/02/24 Replete and continue to trend DVT ppx: SCD Code: full Discharge Plan: Home Plan to discharge in: Greater than 2 days <Hillary Ott - Last Filed: 08/02/24 09:41> - Plan Pt seen and examined. I agree with the note by the TUBULAR RIVETER. cardiology stopped lasix drip. Will start Lasix 80mg iv BID. Pt has diuresed well. Still has leg edema. Will replete potassium ( 2.5). Continue clindamycin for the cellulitis. <Vasiliy Au - Last Filed: 08/02/24 13:57>
[2024-08-02] MEDS: acetaZOLAMIDE 250 MG TAB PO SCH (10:30)
[2024-08-02] MEDS: Magnesium Sulfate 2gm IVPB 2 G/50 ML BAG IV SCH (10:34)
--- NOTE | 2024-08-02 10:34 | RAD REPORT ---
EXAMINATION: ONE VIEW CHEST XR CLINICAL INDICATION: Male, 29 years old. Congestive heart failure. TECHNIQUE: 1 View, AP supine, X-ray of the chest was performed. [id number]. COMPARISON: No prior exam. FINDINGS: Lungs and pleura: Bilateral pleural effusions, right greater than left.Hazy bilateral airspace diseas e. Improved lung volumes . Heart and mediastinum: Moderate cardiomegaly.. Unremarkable mediastinal contours. Osseous structures: No acute abnormality. Tubes/lines: None Other: None. IMPRESSION: Pulmonary edema, probably modestly improved compared with 07/30/2024.
--- NOTE | 2024-08-02 11:14 | P.PN ---
Subjective Date of Service: 08/02/24 Chief Complaint: shortness of breath, edema Subjective: No new changes, No C/O voiced, Tolerating diet, Ambulating, Improving Review of Systems 10-point ROS is otherwise unremarkable Physical Examination - Vital Signs Temperature: 97.5 F Blood Pressure: 110/56 Pulse: 83 Respirations: 20 Pulse Ox (%): 95 - Physical Exam General: Alert, In no apparent distress HEENT: Atraumatic, PERRLA, EOMI Neck: Supple, JVD not distended Respiratory: Clear to auscultation bilaterally, Normal air movement Cardiovascular: Regular rate/rhythm, Normal S1 S2 Gastrointestinal: Normal bowel sounds, No tenderness Musculoskeletal: No tenderness Integumentary: No rashes Neurological: Normal speech, Normal tone, Normal affect Lymphatics: No axilla or inguinal lymphadenopathy - Studies Medications List Reviewed: Yes Assessment And Plan - Current Problems (Diagnosis) (1) Acute on chronic combined systolic and diastolic heart failure Current Visit: No Status: Acute Plan: Switch Lasix to 80 mg IV BID agree with Diamox 250 mg daily add Aldactone 25 mg daily Continue Coreg 3.125 mg po BID Monitor and document input and output monitor and correct electrolytes. (2) Mitral regurgitation Current Visit: No Status: Acute Plan: moderate to severe on last echo, need to optimize fluid status and repeat echo after.
[2024-08-02] MEDS ORDERED: ARFORMOTEROL TARTRATE 15 MCG/2 ML VIAL.NEB NEB PRN (13:55)
--- NOTE | 2024-08-02 14:09 | ECHO ---
HEIGHT: 5 ft 11 in WEIGHT: 277 lb 3.2 oz DATE OF STUDY: 08/02/[address]: Hillary Ott LINTER OPERATOR-BC 2-DIMENSIONAL: YES M.MODE: YES DOPPLER: YES COLOR FLOW: YES TDS: PORTABLE: YES DEFINITY: BUBBLE STUDY: DIAGNOSIS: EJECTION FRACTION & MITRAL VALVE EVALUATION CARDIAC HISTORY: CATHERIZATION: NO SURGERY: NO PROSTHETIC VALVE: NO PACEMAKER: NO MEASUREMENTS (cm) DIASTOLIC (NORMALS) SYSTOLIC (NORMALS) IVSd 1.3 (0.6-1.2) LA Diam 5.0 (1.9-4.0) LVEF 30% LVIDd 6.1 (3.5-5.7) LVIDs 5.2 (2.0-3.5) %FS 15% LVPWd 1.3 (0.6-1.2) Ao Diam 2.9 (2.0-3.7) 2 DIMENSIONAL ASSESSMENT: RIGHT ATRIUM: NORMAL LEFT ATRIUM: MODERATELY DILATED RIGHT VENTRICLE: NORMAL LEFT VENTRICLE: MODERATELY DILATED TRICUSPID VALVE: TRACE TRICUSPID REGURGITATION MITRAL VALVE: MODERATE MITRAL REGURGITATION PULMONIC VALVE: NORMAL AORTIC VALVE: NORMAL PERICARDIAL EFFUSION: NONE AORTIC ROOT: NORMAL LEFT VENTRICULAR WALL MOTION: SEVERE GLOBAL HYPOKINESIS DOPPLER/COLOR FLOW: DIASTOLIC DYSFUNCTION COMMENTS: 1. MODERATELY DILATED LEFT VENTRICULAR CAVITY 2. SEVERELY REDUCED LEFT VENTRICULAR SYSTOLIC FUNCTION, EJECTION FRACTION 30%, SEVERE GLOBAL HYPOKINESIS 3. DIASTOLIC DYSFUNCTION 4. MODERATE MITRAL REGURGITATION 5. MODERATELY DILATED LEFT ATRIUM 6. ELEVATED FILLING PRESSURE (RIGHT ATRIAL PRESSURE GREATER THAN 20 mmHg) 7. MODERATE PULMONARY HYPERTENSION (RIGHT VENTRICULAR SYSTOLIC PRESSURE 50-55 mmHg) TECHNOLOGIST: [*]
[2024-08-02] MEDS: POTASSIUM 25 MEQ EFFERV TAB PO ONE (15:07)
[2024-08-02] MEDS: FUROSEMIDE 40 MG/4 ML VIAL IV SCH ×2 (17:00→20:27)
[2024-08-02 19:59] LABS: Magnesium 2.1 mg/dL (1.6-2.4); Potassium 2.8 mEq/L (3.5-5.1)
[2024-08-02] MEDS: ACETAZOLAMIDE 500 MG IV ONE (22:48)
[2024-08-03 08:01] LABS: Absolute Eosinophils 0.4 K/uL (0-0.5); Absolute Lymphocytes (CBC) 2.2 K/uL (0.7-4.9); Absolute Monocytes 0.8 K/uL (0.1-1.3); Absolute Neutrophil 3.5 K/uL (1.8-8.0); Basophils % 0.7 % (0-1.3); Eosinophils % 5.8 % (0-4.4); Hematocrit 39.2 % (39.6-49.0); Hemoglobin 12.7 g/dL (13.6-17.9); Lymphocytes % 31.6 % (15.3-44.8); MCH 28.3 pg (27.0-35.0); MCHC 32.5 g/dL (32.0-36.0); MCV 87.1 fL (80-100); MPV 8.4 fL (7.6-11.3); Monocytes % 11.5 % (3.3-12.3); Neutrophils % 50.4 % (41.7-73.7); Platelets 288 thou/uL (152-406); Red Cell Distribution Width 14.7 % (12.1-15.2)
[2024-08-03 08:21] LABS: Albumin 3.2 g/dL (3.4-5.0); Albumin/Globulin Ratio 1.1 (1.1-1.8); Protein, Total 6.2 g/dL (6.4-8.2)
--- NOTE | 2024-08-03 08:32 | P.PN ---
Date of Service: 08/03/24 Subjective Date of Service: 08/03/24 Chief Complaint: shortness of breath, edema Subjective: Improving Physical Examination - Vital Signs reviewed - Studies Medications List Reviewed: Yes Assessment And Plan - Plan Decompensated [place] [address])/anasarca/with hypotension HFrEF Leg edema/cellulitis. Lasix 40mg iv BID, strict I/O and daily weight. changed to Albumin/lasix drip on admit day #2. Discontinued 08/02/24 and changed to Lasix 80mg IV BID Last ECHO showed EF 25-30% (06/13), 08/02 ECHO showed EF 30% post 13.5kg fluid wt loss over the preceding three days Therapeutic Lovenox Dr. Hughes following Leg cellulitis: Doppler ultrasound is unremarkable. clindamycin 900mg IV q 8h - continues 08/02/24 lower extremities less tight, remain erythematous, denies pain 08/03/24 legs not as tight or weeping, continues with edema and mild erythema, continue abx Hx of Lymphoma: Will f/u [facility] oncologist in clinic Hypokalemia/hypomagnesemia 08/02/24 Replete and continue to trend 08/03/24 continuing to replete potassium, Mag stable DVT ppx: SCD Code: full Discharge Plan: Home Plan to discharge in: Greater than 2 days time 29min <Hillary Ott - Last Filed: 08/03/24 08:32> Pt seen and examined. I agree with the note by the EXT JS DEVELOPER. Cardiology stopped lasix drip on 08/01/24. Continue Lasix 80mg iv BID. Pt has diuresed well. Still has leg edema. Will replete potassium ( 3<- 2.5). We bolused 500 cc of IVF due to hypotension ( BP 98/60). Held lasix this am. Continue clindamycin for the cellulitis. <Vasiliy Au - Last Filed: 08/03/24 14:04>
[2024-08-03] MEDS: POTASSIUM CL SA 10 MEQ TAB PO ONE ×3 (09:37→20:57)
[2024-08-03] MEDS: NA CHLORIDE 0.9% 500 ML IV ONE (09:38)
[2024-08-03] MEDS: SPIRONOLACTONE 25 MG TABLET PO SCH (12:00)
--- NOTE | 2024-08-03 17:14 | P.PN ---
Subjective Date of Service: 08/03/24 Chief Complaint: shortness of breath, edema Subjective: No new changes, No C/O voiced, Tolerating diet, Ambulating, Improving Review of Systems 10-point ROS is otherwise unremarkable Physical Examination - Vital Signs Temperature: 97.6 F Blood Pressure: 95/71 Pulse: 118 Respirations: 16 Pulse Ox (%): 97 - Physical Exam General: Alert, In no apparent distress HEENT: Atraumatic, PERRLA, EOMI Neck: Supple, JVD not distended Respiratory: Clear to auscultation bilaterally, Normal air movement Cardiovascular: Regular rate/rhythm, Normal S1 S2, Edema Gastrointestinal: Normal bowel sounds, No tenderness Musculoskeletal: No tenderness Integumentary: No rashes Neurological: Normal speech, Normal tone, Normal affect Lymphatics: No axilla or inguinal lymphadenopathy - Studies Medications List Reviewed: Yes Assessment And Plan - Current Problems (Diagnosis) (1) Acute on chronic combined systolic and diastolic heart failure Current Visit: No Status: Acute Plan: lower lasix to 40 mg IV q 8 hours, please do not hold unless patient BP is less than 80 systolic. agree with Diamox 250 mg daily add Aldactone 25 mg daily Continue Coreg 3.125 mg po BID Monitor and document input and output monitor and correct electrolytes. (2) Mitral regurgitation Current Visit: No Status: Acute Plan: moderate to severe on last echo, need to optimize fluid status and repeat echo after.
[2024-08-04 05:29] LABS: Absolute Basophils 0.1 K/uL (0-0.5); Absolute Eosinophils 0.4 K/uL (0-0.5); Absolute Lymphocytes (CBC) 2.6 K/uL (0.7-4.9); Absolute Neutrophil 3.8 K/uL (1.8-8.0); Basophils % 0.7 % (0-1.3); Eosinophils % 5.2 % (0-4.4); Hematocrit 37.7 % (39.6-49.0); Hemoglobin 12.7 g/dL (13.6-17.9); Lymphocytes % 33.2 % (15.3-44.8); MCH 29.2 pg (27.0-35.0); MCHC 33.8 g/dL (32.0-36.0); MCV 86.4 fL (80-100); MPV 8.1 fL (7.6-11.3); Monocytes % 12.2 % (3.3-12.3); Neutrophils % 48.7 % (41.7-73.7); Platelets 315 thou/uL (152-406); RBC Red Blood Cell Count 4.37 M/uL (4.33-5.43); Red Cell Distribution Width 14.6 % (12.1-15.2)
[2024-08-04 05:42] LABS: Albumin 3.1 g/dL (3.4-5.0); Albumin/Globulin Ratio 1.1 (1.1-1.8); Anion Gap 9.1 mEq/L (5.0-15.0); Bilirubin Total 1.1 mg/dL (0.2-1.0); Globulin 2.8 g/dL (2.3-3.5); Potassium 3.1 mEq/L (3.5-5.1); Protein, Total 5.9 g/dL (6.4-8.2)
[2024-08-04] MEDS: POTASSIUM CL SA 10 MEQ TAB PO SCH (09:02)
[2024-08-04] MEDS: POTASSIUM CL SA 10 MEQ TAB PO ONE (09:59)
--- NOTE | 2024-08-04 10:28 | P.PN ---
Subjective Date of Service: 08/04/24 Chief Complaint: shortness of breath, edema Pt is resting comfortably in his room. He reported increased urine output this am. Fluid balance is - 11,200cc since admission. Pt is getting lasix lasix 40mg iv TID. Cardiology is following. No other complaints. Review of Systems General: Unremarkable Eyes: Unremarkable ENT: Unremarkable Respiratory: Unremarkable Cardiovascular: Edema Gastrointestinal: Unremarkable Genitourinary: Unremarkable Musculoskeletal: Unremarkable Integumentary: Lesions, Unremarkable Neurological: Unremarkable Lymphatics: Unremarkable Physical Examination - Vital Signs Temperature: 97.9 F Blood Pressure: 98/67 Pulse: 107 Respirations: 16 Pulse Ox (%): 98 - Physical Exam General: Alert, In no apparent distress, Oriented x3 HEENT: Atraumatic, Normocephalic, PERRLA Neck: Supple, 2+ carotid pulse no bruit, JVD not distended Respiratory: Clear to auscultation bilaterally, Normal air movement Cardiovascular: No edema, Normal pulses, Regular rate/rhythm, Normal S1 S2, Edema Capillary refill: <2 Seconds Gastrointestinal: Normal bowel sounds, Soft and benign, Non-distended Musculoskeletal: No clubbing, No swelling, No contractures Integumentary: No rashes, No breakdown, No significant lesion Neurological: Normal gait, Normal speech, Normal strength at 5/5 x4 extr Lymphatics: No axilla or inguinal lymphadenopathy - Studies Medications List Reviewed: Yes Assessment And Plan - Plan Acute systolic and disatolic CHF exacerbation/ SOB/ Anasarca/ Leg edema / Pulm edema: [place] [address]. Will continue Lasix 40mg TID, coreg, aldactone, strict I/O and daily weight. Fluid balance is - 11,200 cc. Last Echo in May, showed EF 25 - 30%. Cardiology is following. 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 Recent Echo shows EF 30% with severe global hypokinesis, mitral regurgitation and moderate pulm htn. Will repeat Echo for when volume status improve. Hypokalemia: K is 3.1. Will repleet and monitor. Leg cellulitis: Doppler ultrasound is unremarkable. Pt received clinda in the ER. Will continue doxycycline. Hx of Lymphoma: Will f/u with oncologist in clinic. Morbid obesity: Pt was advised to lose weight. DVT ppx: SCD Code: full Dispo: Pending hospital course.
[2024-08-04] MEDS ORDERED: FUROSEMIDE 40 MG/4 ML VIAL IV SCH (17:00)
[2024-08-04] MEDS: FUROSEMIDE 40 MG/4 ML VIAL IV SCH (17:17)
[2024-08-04] MEDS: MUPIROCIN 2% OINT 22GM TUBE TOP SCH (21:00)
[2024-08-05 06:18] LABS: Absolute Basophils 0.1 K/uL (0-0.5); Absolute Eosinophils 0.4 K/uL (0-0.5); Absolute Monocytes 0.9 K/uL (0.1-1.3); Absolute Neutrophil 4.1 K/uL (1.8-8.0); Basophils % 0.8 % (0-1.3); Eosinophils % 4.7 % (0-4.4); Hematocrit 40.8 % (39.6-49.0); Hemoglobin 12.9 g/dL (13.6-17.9); Lymphocytes % 35.4 % (15.3-44.8); MCH 27.8 pg (27.0-35.0); MCHC 31.7 g/dL (32.0-36.0); MCV 87.6 fL (80-100); MPV 8.7 fL (7.6-11.3); Monocytes % 11.1 % (3.3-12.3); Nucleated Red Blood Cells % 0.1 % (0-0); Platelets 325 thou/uL (152-406); RBC Red Blood Cell Count 4.65 M/uL (4.33-5.43); Red Cell Distribution Width 14.9 % (12.1-15.2)
[2024-08-05 06:28] LABS: Albumin 3.2 g/dL (3.4-5.0); Anion Gap 12.4 mEq/L (5.0-15.0); Bilirubin Total 0.8 mg/dL (0.2-1.0); Globulin 3.1 g/dL (2.3-3.5); Potassium 3.4 mEq/L (3.5-5.1); Protein, Total 6.3 g/dL (6.4-8.2)
--- NOTE | 2024-08-05 08:12 | P.PN ---
Subjective Date of Service: 08/05/24 Chief Complaint: shortness of breath, edema Pt is resting comfortably in his room. He reported increased urine output this am. Fluid balance is - 11,500cc since admission. Pt is getting lasix lasix 40mg iv TID. Cardiology is following. No other complaints. Review of Systems General: Unremarkable Eyes: Unremarkable ENT: Unremarkable Respiratory: Unremarkable Cardiovascular: Unremarkable Gastrointestinal: Unremarkable Genitourinary: Unremarkable Musculoskeletal: Unremarkable Integumentary: Unremarkable Neurological: Unremarkable Lymphatics: Unremarkable Physical Examination - Vital Signs Temperature: 98.0 F Blood Pressure: 107/73 Pulse: 122 Respirations: 20 Pulse Ox (%): 100 - Physical Exam General: Alert, In no apparent distress, Oriented x3 HEENT: Atraumatic, Normocephalic, PERRLA Neck: Supple, 2+ carotid pulse no bruit, JVD not distended Respiratory: Clear to auscultation bilaterally, Normal air movement, Diminished Cardiovascular: No edema, Normal pulses, Regular rate/rhythm, Edema Capillary refill: <2 Seconds Gastrointestinal: Normal bowel sounds, Soft and benign, Non-distended Musculoskeletal: No clubbing, No swelling, No contractures Integumentary: No rashes, No breakdown, No significant lesion Neurological: Normal gait, Normal speech, Normal strength at 5/5 x4 extr, Normal tone, Sensation intact Lymphatics: No axilla or inguinal lymphadenopathy - Studies Microbiology Data (last 24 hrs): 07/30/24 13:55 Blood - Blood Aerobic Blood Culture - Final No growth in 5 days. 07/30/24 13:55 Blood - Blood Anaerobic Blood Culture - Final No growth in 5 days. 07/30/24 13:40 Blood - Blood Aerobic Blood Culture - Final No growth in 5 days. 07/30/24 13:40 Blood - Blood Anaerobic Blood Culture - Final No growth in 5 days. Medications List Reviewed: Yes Assessment And Plan - Plan Acute systolic and disatolic CHF exacerbation/ SOB/ Anasarca/ Leg edema / Pulm edema: [place] [address]. Will continue Lasix 40mg TID, coreg, aldactone, strict I/O and daily weight. Fluid balance is - 11,200 cc. Last Echo in May, showed EF 25 - 30%. Cardiology is following. 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 Recent Echo shows EF 30% with severe global hypokinesis, mitral regurgitation and moderate pulm htn. Will repeat Echo for when volume status improve. Hypokalemia: K is 3.4 <- 3.1. Will repleet and monitor. Leg cellulitis: Doppler ultrasound is unremarkable. Pt received clinda in the ER. Will continue doxycycline. Hx of Lymphoma: Will f/u with oncologist in clinic. Morbid obesity: Pt was advised to lose weight. DVT ppx: SCD Code: full Dispo: Pending hospital course.
[2024-08-05] MEDS: POTASSIUM CL SA 10 MEQ TAB PO ONE (08:23)
--- NOTE | 2024-08-05 11:54 | P.PN ---
Subjective Date of Service: 08/05/24 Chief Complaint: shortness of breath, edema Subjective: No new changes, No C/O voiced, Tolerating diet, Ambulating, Improving Review of Systems 10-point ROS is otherwise unremarkable Physical Examination - Vital Signs Temperature: 98.0 F Blood Pressure: 107/73 Pulse: 122 Respirations: 20 Pulse Ox (%): 100 - Physical Exam General: Alert, In no apparent distress HEENT: Atraumatic, PERRLA, EOMI Neck: Supple, JVD not distended Respiratory: Clear to auscultation bilaterally, Normal air movement Cardiovascular: Regular rate/rhythm, Normal S1 S2, Edema (+1 bilateral lower extremities) Gastrointestinal: Normal bowel sounds, No tenderness Musculoskeletal: No tenderness Integumentary: No rashes Neurological: Normal speech, Normal tone, Normal affect Lymphatics: No axilla or inguinal lymphadenopathy - Studies Microbiology Data (last 24 hrs): 07/30/24 13:55 Blood - Blood Aerobic Blood Culture - Final No growth in 5 days. 07/30/24 13:55 Blood - Blood Anaerobic Blood Culture - Final No growth in 5 days. 07/30/24 13:40 Blood - Blood Aerobic Blood Culture - Final No growth in 5 days. 07/30/24 13:40 Blood - Blood Anaerobic Blood Culture - Final No growth in 5 days. Medications List Reviewed: Yes Assessment And Plan - Current Problems (Diagnosis) (1) Acute on chronic combined systolic and diastolic heart failure Current Visit: No Status: Acute Plan: Change Lasix to 80 mg po BID for 1 week then continue Lasix 40 mg po BID Continue Diamox 250 mg daily Continue Aldactone 25 mg daily Continue Coreg 3.125 mg po BID Monitor and document input and output monitor and correct electrolytes. (2) Mitral regurgitation Current Visit: No Status: Acute Plan: moderate to severe on last echo, need to optimize fluid status and repeat echo after.
[2024-08-05] MEDS: FUROSEMIDE 40 MG TABLET PO SCH (19:48)
[2024-08-05] MEDS ORDERED: MUPIROCIN 2% OINT 22GM TUBE TOP ONE (22:03)
[2024-08-05] MEDS: Mupirocin NASAL 2 APPL/1 GM TUBE NAS ONE (22:16)
[2024-08-06 05:15] LABS: Absolute Basophils 0.1 K/uL (0-0.5); Absolute Eosinophils 0.4 K/uL (0-0.5); Absolute Lymphocytes (CBC) 2.9 K/uL (0.7-4.9); Absolute Monocytes 0.8 K/uL (0.1-1.3); Absolute Neutrophil 3.6 K/uL (1.8-8.0); Basophils % 1.2 % (0-1.3); Eosinophils % 4.6 % (0-4.4); Hematocrit 38.3 % (39.6-49.0); Hemoglobin 12.1 g/dL (13.6-17.9); MCH 27.7 pg (27.0-35.0); MCHC 31.5 g/dL (32.0-36.0); MCV 87.8 fL (80-100); MPV 8.2 fL (7.6-11.3); Monocytes % 10.6 % (3.3-12.3); Neutrophils % 46.6 % (41.7-73.7); Platelets 275 thou/uL (152-406); RBC Red Blood Cell Count 4.36 M/uL (4.33-5.43)
[2024-08-06 05:34] LABS: Anion Gap 8.6 mEq/L (5.0-15.0); Bilirubin Total 0.8 mg/dL (0.2-1.0); Globulin 2.9 g/dL (2.3-3.5); Potassium 3.6 mEq/L (3.5-5.1); Protein, Total 5.9 g/dL (6.4-8.2)
[2024-08-06] MEDS: POTASSIUM CL SA 10 MEQ TAB PO ONE (08:43)
[2024-08-06] MEDS ORDERED: FUROSEMIDE 40 MG TABLET PO SCH (09:00)
[2024-08-06 09:03] VITALS: O2SAT 93
--- NOTE | 2024-08-06 09:35 | P.PN ---
Subjective Date of Service: 08/06/24 Chief Complaint: shortness of breath, edema Pt is resting comfortably in his room. He reported increased urine output this am. Fluid balance is - 12,600cc since admission. Pt is getting lasix lasix 80mg po BID ( Day 2). Will f/u Echo to check mitral valve. Cardiology is following. No other complaints. Review of Systems General: Unremarkable Eyes: Unremarkable ENT: Unremarkable Respiratory: Unremarkable Cardiovascular: Unremarkable Gastrointestinal: Unremarkable Genitourinary: Unremarkable Musculoskeletal: Unremarkable Integumentary: Unremarkable Neurological: Unremarkable Lymphatics: Unremarkable Physical Examination - Vital Signs Temperature: 97.5 F Blood Pressure: 101/62 Pulse: 105 Respirations: 22 Pulse Ox (%): 97 - Physical Exam General: Alert, In no apparent distress, Oriented x3 HEENT: Atraumatic, Normocephalic, PERRLA Neck: Supple, 2+ carotid pulse no bruit, JVD not distended Respiratory: Clear to auscultation bilaterally, Normal air movement Cardiovascular: No edema, Normal pulses, Regular rate/rhythm, Normal S1 S2 Capillary refill: <2 Seconds Gastrointestinal: Normal bowel sounds, Soft and benign, Non-distended Musculoskeletal: No clubbing, No swelling, No contractures Integumentary: No rashes, No breakdown, No significant lesion, No tenderness/swelling Neurological: Normal gait, Normal speech, Normal strength at 5/5 x4 extr Lymphatics: No axilla or inguinal lymphadenopathy - Studies Medications List Reviewed: Yes Assessment And Plan - Plan Acute systolic and disatolic CHF exacerbation/ SOB/ Anasarca/ Leg edema / Pulm edema: [place] [address]. Will continue Lasix 80 mg po BID ( day 12/28) for 1 week, then continue lasix 40mg po BID. Continue coreg, aldactone, strict I/O and daily weight. Fluid balance is - 11,200 cc. Last Echo in May, showed EF 25 - 30%. Cardiology is following. 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 Recent Echo shows EF 30% with severe global hypokinesis, mitral regurgitation and moderate pulm htn. Will repeat Echo for when volume status improve. Hypokalemia: K is 3.6 <- 3.4 <- 3.1. Will repleet and monitor. Leg cellulitis: Doppler ultrasound is unremarkable. Pt received clinda in the ER. Will continue doxycycline. Hx of Lymphoma: Will f/u with oncologist in clinic. Morbid obesity: Pt was advised to lose weight. DVT ppx: SCD Code: full Dispo: Pending hospital course.
[2024-08-06 12:47] VITALS: BP 102/62; TEMP 97.6
--- NOTE | 2024-08-06 14:19 | P.DS ---
Admission Date: 07/30/24 Discharge Date: 08/06/24 Disposition: ROUTINE DISCHARGE Discharge Condition: GOOD Reason for Admission: shortness of breath, edema Brief History of Present Illness: Mr. Sharpe is a 29-year-old male with a past medical history of non-Hodgkin's lymphoma, chemotherapy induced cardiomyopathy with CHF, and a poor ejection fraction of 25 to 30%. After his discharge from the hospital he was in his normal state of health until he acquired an upper respiratory infection Tuesday through Tuesday of last week. He states he has been progressively short of breath with orthopnea and dyspnea on exertion worsening since that time (roughly 5 days). He presented to the emergency department today with the above complaints with 95/74 blood pressure, 108 heart rate, 97% SpO2 on room air. He was noted to have a little erythema to bilateral left greater than right lower extremities. Ultrasound evaluation was negative for DVT bilaterally. He will be admitted for further evaluation and treatment of HFrEF and cellulitis. Lab studies show wbc 8.3, Hgb 12.9, plt 330, K 3.8, Cr 1.18, NA 135, BNP 06978. CXR: shows pulm edema. Hospital Course: Pt is a 29yo male with a past medical history of non-Hodgkin's lymphoma, chemotherapy induced cardiomyopathy with CHF (a poor ejection fraction of 25 to 30%) who presented with shortness of breath and orthopnea. ON admission, pt was volumed overloaded. Lab studies showed wbc 8.3, Hgb 12.9, plt 330, K 3.8, Cr 1.18, NA 135, BNP 73747. Doppler ultrasound showed no evidence of DVT. CXR showed pulm edema. Cardiology saw pt and recommended lasix drip. Pt diuresed 11.5 liters. Pt lost significant weight. Cardiology did Echo which showed EF 30% with severe global hypokinesis, mitral regurgitation and moderate pulm htn. Pt will f/u With Cardiology in clinic for repeat Echo. We repleted potassium and continued clindamycin for cellulitis on his leg. We later discharged pt with doxycycline. He was advised to take lasix 80mg po BID for 5 more days, then continue lasix 40mg po BID. Pt was in NAD prior to discharge. Vital Signs/Physical Exam: Temp Pulse Resp BP Pulse Ox 97.6 F 122 H 12 102/62 91 08/06/24 12:00 08/06/24 12:00 08/06/24 12:00 08/06/24 12:00 08/06/24 12:00 Laboratory Data at Discharge: WBC 7.70 thou/uL (4.3-10.9) 08/06/24 05:05 Hgb 12.1 g/dL (13.6-17.9) L 08/06/24 05:05 Hct 38.3 % (39.6-49.0) L 08/06/24 05:05 Plt Count 275 thou/uL (152-406) 08/06/24 05:05 PT 15.0 SECONDS (9.4-12.5) H 07/30/24 13:55 INR 1.35 07/30/24 13:55 APTT 30.0 SECONDS (24.3-36.9) 07/30/24 13:55 Sodium 138 mEq/L (136-145) 08/06/24 05:05 Potassium 3.6 mEq/L (3.5-5.1) 08/06/24 05:05 BUN 21 mg/dL (7-18) H 08/06/24 05:05 Creatinine 1.09 mg/dL (0.70-1.30) 08/06/24 05:05 Glucose 102 mg/dL (74-106) 08/06/24 05:05 Phosphorus 3.8 mg/dL (2.5-4.9) 07/31/24 05:50 Magnesium 2.1 mg/dL (1.6-2.4) 08/02/24 19:13 Total Bilirubin 0.8 mg/dL (0.2-1.0) 08/06/24 05:05 AST 28 U/L (15-37) 08/06/24 05:05 ALT 48 U/L (16-61) 08/06/24 05:05 Alkaline Phosphatase 68 U/L (45-117) 08/06/24 05:05 Triglycerides 53 mg/dL (<150) 07/31/24 05:50 Cholesterol 91 mg/dL (<200) 07/31/24 05:50 HDL Cholesterol 25 mg/dL (40-60) L 07/31/24 05:50 Cholesterol/HDL Ratio 3.64 07/31/24 05:50 Home Medications: Spironolactone [Aldactone*] 12.5 mg PO DAILY 60 Days #30 tab 06/07/24 carvediloL [Coreg*] 3.125 mg PO BID 30 Days #60 tab 06/07/24 Doxycycline Hyclate 100 mg PO BID 3 Days #6 tab 08/06/24 Furosemide [Lasix] 40 mg PO BIDL 30 Days #60 tab 08/06/24 Potassium Chloride 10 meq PO DAILY 30 Days #30 tab 08/06/24 New Medications: Doxycycline Hyclate 100 mg PO BID 3 Days #6 tab Furosemide [Lasix] 40 mg PO BIDL 30 Days #60 tab Potassium Chloride 10 meq PO DAILY 30 Days #30 tab Physician Discharge Instructions: Continue ad luna activity as tolerated. Take Lasix 80mg po BID till 08/11/24, then continue lasix 40mg po BID. Continue other home meds. Follow up with PCP and Cardiology within 1 - 2 weeks. Diet: AHA Activity: Ad luna Followup: Surendra Haro MD [Primary Care Provider] -
== END 2024-08-06 15:45 | disposition home or self-care (01) | DRG 292 ==
LOC: ER 12:20 → ERHOLD 16:29 → 2ND 18:00
PROVIDERS: ADMIT Hospitalist; ATTEND Hospitalist
DX: I50.43 Acute on chronic combined systolic (congestive) and diastolic (congestive) heart failure (principal); C85.90 Non-Hodgkin lymphoma, unspecified, unspecified site; L03.116 Cellulitis of left lower limb; I42.7 Cardiomyopathy due to drug and external agent; I47.20 Ventricular tachycardia, unspecified; Z68.41 Body mass index [BMI] 40.0-44.9, adult; E66.01 Morbid (severe) obesity due to excess calories; E87.6 Hypokalemia; E83.42 Hypomagnesemia; I34.0 Nonrheumatic mitral (valve) insufficiency; T45.1X5A Adverse effect of antineoplastic and immunosuppressive drugs, initial encounter; Z79.02 Long term (current) use of antithrombotics/antiplatelets; Z79.899 Other long term (current) drug therapy
CPT/HCPCS: 36415; 71045; 80048; 80053; 80061; 80076; 81001; 82947; 83605; 83735; 83880; 84100; 84132; 84443; 84484; 85025; 85610; 85730; 87040; 93005; 93306; 93970; 94640; 96365; 96375; 99285; J1120; J1650; J1940; J2405; J3475; J3480; J7040; J7050; J7605